=== PATIENT | female | born 1975 | race Caucasian/White ===

== ENCOUNTER 2017-07-18 00:59 | Emergency (ER) | payer BC ==
[~2017-07-18] VITALS: Ht 165.1 cm; Wt 108.9 kg
[~2017-07-18 00:59] MED LIST: ACET325; ACET325 PO; ALBU90OI INH; ALPR.5 PO; ALPR1 PO; ANTOXYBENA OT; AZIT250 PO; BENADRYL25 MG PO; BUPR150ER PO; BUSP10 PO; CEPH500 PO; CHANTIX; CIPRSO RIGHTEYE; CITA20 PO; CLON1 PO; CODACE30; CODGUAEL PO; CRUTCH4 USE; CYCL10 PO; Ciprodex Otic7.5 ML BOTHEARS; Cymbalta20 MG; DIPH50 PO; DOXY100 PO; DULO60 PO; ESCI10 PO; ESZO1 PO; Esgic Tablet1 EACH PO; FLUC150A PO; GABA400 PO; HIBICLENS120 ML EXT; HYDACE5 PO; HYDCHLSU PO; HYDGUAL120 PO; HYDHCL25 PO; IBUHYD PO; IBUP600; IBUP600 PO; IBUP800; IBUP800 PO; Keflex500 MG PO; LEVFLO500 PO; Lyrica150 MG; MECL25 PO; MELA3; MELA3 PO; METF500; MIRT15 PO; MULVITMINE; Melatonin5 M1 PO; NAPR550 PO; NEOPOLHCSU RIGHTEAR; NEOPOLHYDS OT; NITQUIL; NYST100TC TOP; OXYACE5T PO; PREG300 PO; PROP10 PO; PSEU30; RXHYDACE PO; RXHYDGUAS PO; RXNAPNA550 PO; RXNEOPOLHC AS; SERT100 PO; SERT50 PO; SULF10OPSA OD; SULTRIDS PO; SULTRIEL PO; TEMA30; TOPI50 PO; TYLENOL PM; Triamcinolone A15 G3 TOP; UNISOM; Vistaril50 MG PO; ZOLOFT; ZOLP10 PO; ZOLP5 PO; Zofran Odt4 MG SL; [UNRECOGNIZED DRUG - REMARK]
[2017-07-18] MEDS ORDERED: VENL25 (01:18)
[2017-07-18] MEDS ORDERED: LOSA50 PO (01:18)
[2017-07-18] MEDS ORDERED: OLAN10 (01:19)
[2018-01-15] MEDS ORDERED: CYCL10 PO (12:19)
[2018-01-15] MEDS ORDERED: Esgic Tablet1 EACH PO (13:07)
[2018-02-11] MEDS ORDERED: PROP10 PO (02:39)
[2018-02-11] MEDS ORDERED: DICL25ER PO (10:39)
[2018-02-11] MEDS ORDERED: LOSA50 PO (10:40)
[2018-02-11] MEDS ORDERED: Acetaminophen1 EAC2 PO (10:42)
[2018-02-11] MEDS ORDERED: Zantac150 MG PO (12:43)
[2018-05-13] MEDS ORDERED: GABAPENTIN PO (06:21)
[2018-05-22] MEDS ORDERED: QUET200 PO (06:34)
[2018-05-22] MEDS ORDERED: CLON1 PO (06:34)
[2018-05-22] MEDS ORDERED: ROPI2 PO (06:34)
== END 2017-07-18 01:53 | disposition home or self-care (01) ==
LOC: ER 00:59
DX: R51 Headache (principal); Z88.8 Allergy status to other drugs, medicaments and biological substances; Z79.899 Other long term (current) drug therapy; F41.9 Anxiety disorder, unspecified; G43.909 Migraine, unspecified, not intractable, without status migrainosus; F32.9 Major depressive disorder, single episode, unspecified; I10 Essential (primary) hypertension; F17.200 Nicotine dependence, unspecified, uncomplicated
CPT/HCPCS: 96372; 99283; J1100; J1885; Q0163

== ENCOUNTER 2017-07-24 01:04 | Emergency (ER) | payer BC ==
[~2017-07-24] VITALS: Ht 165.1 cm; Wt 90.7 kg
[~2017-07-24 01:04] MED LIST changes: +LOSA50 PO; +OLAN10; +VENL25
[2017-07-24] MEDS ORDERED: AMLO10 PO (02:19)
[2017-07-24] MEDS ORDERED: RANI150 PO (02:20)
[2017-07-24] MEDS ORDERED: VITAMIN D50000 UNIT PO (02:21)
[2017-07-24 02:32] LABS: BASOPHILS ABSOLUTE AUTO 0.03 K/mm3 (0.00-0.23); BASOPHILS PERCENT AUTO 0 % (0-2); EOSINOPHILS PERCENT AUTO 1 % (0-6); Hematocrit 37.7 % (33.0-51.0); Hemoglobin 13.2 g/dL (11.5-16.0); IMMATURE GRAN ABSOLUTE AUTO 0.11 K/mm3 (0.00-0.10); IMMATURE GRAN PERCENT AUTO 1 % (0-1); LYMPHOCYTES ABSOLUTE AUTO 3.52 K/mm3 (0.84-5.20); LYMPHOCYTES PERCENT AUTO 25 % (21-46); MONOCYTES ABSOLUTE AUTO 1.11 K/mm3 (0.16-1.47); MONOCYTES PERCENT AUTO 8 % (4-13); Mean Corpuscular HGB 31.1 pg (26.0-34.0); Mean Corpuscular Volume 89 fL (80-100); Mean Platelet Volume 10.8 fL (9.1-12.4); NEUTROPHILS ABSOLUTE AUTO 9.33 K/mm3 (1.96-9.15); NEUTROPHILS PERCENT AUTO 65 % (41-73); Platelet Count 268 K/mm3 (150-400); RDW Coefficient Variation 12.6 % (11.7-14.2); RDW Standard Deviation 40.6 fL (35.1-46.3); Red Blood Cell Count 4.24 M/mm3 (3.80-5.20)
[2017-07-24 02:53] LABS: Alanine Aminotransfer (ALT/SGP 24 U/L (12-78); Albumin, Blood 3.6 g/dL (3.4-5.0); Albumin/Globulin Ratio 0.9 (0.8-1.8); Alk Phos 71 U/L (50-136); Anion Gap 12 mmol/L (6-16); Aspartate Aminotrans (AST/SGOT 13 U/L (12-37); Bilirubin, Total 0.2 mg/dL (0.1-1.0); Blood Urea Nitrogen 11 mg/dL (8-24); Bun/Creatinine Ratio 21.1 (12.0-20.0); CO2, Blood 21 mmol/L (21-32); Calcium, Blood 8.5 mg/dL (8.5-10.1); Chloride, Blood 104 mmol/L (98-108); Creatinine, Blood 0.52 mg/dL (0.40-1.00); Globulin, Blood 3.8 g/dL (2.2-4.0); Glomerular Filtration Rate >60 (60-); Glucose, Blood 105 mg/dL (70-99); Potassium, Blood 3.9 mmol/L (3.5-5.5); Sodium, Blood 137 mmol/L (136-145); Total Protein, Blood 7.4 g/dL (6.4-8.2); Troponin I <0.015 ng/mL (0.000-0.040)
[2018-01-15] MEDS ORDERED: CYCL10 PO (12:19)
[2018-01-15] MEDS ORDERED: Esgic Tablet1 EACH PO (13:07)
[2018-02-11] MEDS ORDERED: PROP10 PO (02:39)
[2018-02-11] MEDS ORDERED: DICL25ER PO (10:39)
[2018-02-11] MEDS ORDERED: LOSA50 PO (10:40)
[2018-02-11] MEDS ORDERED: Acetaminophen1 EAC2 PO (10:42)
[2018-02-11] MEDS ORDERED: Zantac150 MG PO (12:43)
[2018-05-13] MEDS ORDERED: GABAPENTIN PO (06:21)
[2018-05-22] MEDS ORDERED: ROPI2 PO (06:34)
[2018-05-22] MEDS ORDERED: QUET200 PO (06:34)
[2018-05-22] MEDS ORDERED: CLON1 PO (06:34)
== END 2017-07-24 03:00 | disposition home or self-care (01) ==
LOC: ER 01:04
PROVIDERS: Emergency Medicine
DX: R07.9 Chest pain, unspecified (principal); I10 Essential (primary) hypertension; F41.9 Anxiety disorder, unspecified; F32.9 Major depressive disorder, single episode, unspecified; F17.200 Nicotine dependence, unspecified, uncomplicated; Z88.8 Allergy status to other drugs, medicaments and biological substances; Z79.899 Other long term (current) drug therapy
CPT/HCPCS: 36415; 71046; 80053; 84484; 85025; 93005; 93010; 99283

== ENCOUNTER 2017-09-18 18:29 | Emergency (ER) | payer BC ==
[~2017-09-18] VITALS: Ht 165.1 cm; Wt 99.8 kg
[~2017-09-18 18:29] MED LIST changes: +AMLO10 PO; +RANI150 PO; +VITAMIN D50000 UNIT PO
[2017-09-18 19:19] LABS: Source, Urine Clean Catch
[2017-09-18 19:24] LABS: Appearance, Urine Hazy (Clear); Bilirubin, Urine Neg (Neg); Blood, Urine Neg (Neg); Color, Urine Yellow (P-Yellow); Glucose Qualitative, Urine Neg (Neg); Ketones, Urine Neg (Neg); Leukocyte Esterase, Urine 1+ (Neg); Nitrite, Urine Neg (Neg); Protein, Urine Neg (Neg); Urobilinogen, Urine NORM (Normal)
[2017-09-18 19:47] LABS: Bacteria Few /hpf; Red Blood Cells, Urine Not Seen /hpf (0-2); Squamous Epithelial Cells Many /hpf (Few)
[2017-09-18] MEDS ORDERED: QUETIAPINE FUM400 MG PO (19:47)
[2017-09-18] MEDS ORDERED: Diclofenac Sodi50 MG PO (19:48)
[2017-09-18] MEDS ORDERED: Venlafaxine HC150 MG PO (19:48)
[2017-09-18] MEDS ORDERED: Inderal40 MG PO (19:49)
[2017-09-18] MEDS ORDERED: HYDHCL25 PO (19:50)
[2017-09-18] MEDS ORDERED: CEPH500 PO (21:32)
[2018-01-15] MEDS ORDERED: CYCL10 PO (12:19)
[2018-01-15] MEDS ORDERED: Esgic Tablet1 EACH PO (13:07)
[2018-02-11] MEDS ORDERED: PROP10 PO (02:39)
[2018-02-11] MEDS ORDERED: DICL25ER PO (10:39)
[2018-02-11] MEDS ORDERED: LOSA50 PO (10:40)
[2018-02-11] MEDS ORDERED: Acetaminophen1 EAC2 PO (10:42)
[2018-02-11] MEDS ORDERED: Zantac150 MG PO (12:43)
[2018-05-13] MEDS ORDERED: GABAPENTIN PO (06:21)
[2018-05-22] MEDS ORDERED: QUET200 PO (06:34)
[2018-05-22] MEDS ORDERED: ROPI2 PO (06:34)
[2018-05-22] MEDS ORDERED: CLON1 PO (06:34)
== END 2017-09-18 22:05 | disposition home or self-care (01) ==
LOC: ER 18:29
PROVIDERS: Emergency Medicine
DX: G43.909 Migraine, unspecified, not intractable, without status migrainosus (principal); N39.0 Urinary tract infection, site not specified; I10 Essential (primary) hypertension; F32.9 Major depressive disorder, single episode, unspecified; F41.9 Anxiety disorder, unspecified; F17.210 Nicotine dependence, cigarettes, uncomplicated; Z88.8 Allergy status to other drugs, medicaments and biological substances; Z79.899 Other long term (current) drug therapy
CPT/HCPCS: 81001; 81025; 87077; 87086; 87186; 96374; 96375; 99284; J0696; J1200; J1885; J2765

== ENCOUNTER 2018-02-24 19:02 | Inpatient (IN) | payer BC ==
[~2018-02-24] VITALS: Ht 162.6 cm; Wt 101.0 kg
[~2018-02-24 19:02] MED LIST changes: +Acetaminophen1 EAC2 PO; +DICL25ER PO; +Diclofenac Sodi50 MG PO; +Inderal40 MG PO; +QUETIAPINE FUM400 MG PO; +Venlafaxine HC150 MG PO; +Zantac150 MG PO
[2018-02-24 19:48] LABS: BASOPHILS ABSOLUTE AUTO 0.06 K/mm3 (0.00-0.23); BASOPHILS PERCENT AUTO 1 % (0-2); EOSINOPHILS PERCENT AUTO 2 % (0-6); Hematocrit 35.6 % (33.0-51.0); Hemoglobin 11.7 g/dL (11.5-16.0); IMMATURE GRAN PERCENT AUTO 5 % (0-1); LYMPHOCYTES ABSOLUTE AUTO 2.35 K/mm3 (0.84-5.20); LYMPHOCYTES PERCENT AUTO 18 % (21-46); MONOCYTES ABSOLUTE AUTO 0.59 K/mm3 (0.16-1.47); MONOCYTES PERCENT AUTO 4 % (4-13); Mean Corpuscular HGB Conc 32.9 g/dL (31.5-36.5); Mean Corpuscular Volume 88 fL (80-100); Mean Platelet Volume 10.1 fL (9.1-12.4); NEUTROPHILS ABSOLUTE AUTO 9.28 K/mm3 (1.96-9.15); NEUTROPHILS PERCENT AUTO 70 % (41-73); Platelet Count 455 K/mm3 (150-400); RDW Coefficient Variation 12.6 % (11.7-14.2); Red Blood Cell Count 4.04 M/mm3 (3.80-5.20); White Blood Cell Count 13.28 K/mm3 (4.00-11.30)
[2018-02-24 20:05] LABS: BAND PERCENT MAN 5 % (0-8); BASOPHILS PERCENT MAN 0 % (0-2); EOSINOPHILS ABSOLUTE MAN 0.39 K/mm3 (0.00-0.68); EOSINOPHILS PERCENT MAN 3 % (0-6); LYMPHOCYTES ABSOLUTE MAN 2.65 K/mm3 (0.84-5.20); LYMPHOCYTES PERCENT MAN 20 % (21-46); METAMYELOCYTE ABSOLUTE MAN 0.13 K/mm3 (0.00-0.00); METAMYELOCYTE PERCENT MAN 1 % (0-0); MONOCYTES ABSOLUTE MAN 0.39 K/mm3 (0.16-1.47); MONOCYTES PERCENT MAN 3 % (4-13); NEUTROPHILS ABSOLUTE MAN 9.69 K/mm3 (1.96-9.15); SEG NEUTROPHILS PERCENT MAN 68 % (41-73); TOTAL CELLS COUNTED 100
[2018-02-24 20:37] LABS: Alanine Aminotransfer (ALT/SGP 30 U/L (12-78); Albumin, Blood 3.4 g/dL (3.4-5.0); Albumin/Globulin Ratio 0.8 (0.8-1.8); Alk Phos 153 U/L (50-136); Anion Gap 11 mmol/L (6-16); Aspartate Aminotrans (AST/SGOT 17 U/L (12-37); Bilirubin, Total <0.1 mg/dL (0.1-1.0); Blood Urea Nitrogen 9 mg/dL (8-24); CO2, Blood 25 mmol/L (21-32); Calcium, Blood 9.2 mg/dL (8.5-10.1); Chloride, Blood 101 mmol/L (98-108); Creatinine, Blood 0.75 mg/dL (0.40-1.00); Globulin, Blood 4.4 g/dL (2.2-4.0); Glomerular Filtration Rate >60 (60-); Glucose, Blood 104 mg/dL (70-99); Potassium, Blood 3.8 mmol/L (3.5-5.5); Sodium, Blood 137 mmol/L (136-145); Total Protein, Blood 7.8 g/dL (6.4-8.2)
[2018-02-24 21:04] LABS: Source, Urine Clean Catch
[2018-02-24 21:07] LABS: Bilirubin, Urine Neg (Neg); Blood, Urine 2+ (Neg); Glucose Qualitative, Urine Neg (Neg); Ketones, Urine Neg (Neg); Leukocyte Esterase, Urine 2+ (Neg); Nitrite, Urine Neg (Neg); Protein, Urine 1+ (Neg); Urobilinogen, Urine NORM (Normal)
[2018-02-24 21:13] LABS: Appearance, Urine Hazy (Clear); Color, Urine Yellow (P-Yellow)
[2018-02-24 21:15] LABS: Bacteria Mod /hpf; Red Blood Cells, Urine 0-2 /hpf (0-2); Squamous Epithelial Cells Many /hpf (Few); White Blood Cells, Urine 50-100 /hpf (0-5)
[2018-02-25] MEDS ORDERED: OXYC5 (00:03)
[2018-02-25 06:28] LABS: BASOPHILS ABSOLUTE AUTO 0.04 K/mm3 (0.00-0.23); BASOPHILS PERCENT AUTO 0 % (0-2); EOSINOPHILS ABSOLUTE AUTO 0.26 K/mm3 (0.00-0.68); EOSINOPHILS PERCENT AUTO 2 % (0-6); Hematocrit 31.3 % (33.0-51.0); Hemoglobin 10.4 g/dL (11.5-16.0); IMMATURE GRAN ABSOLUTE AUTO 0.56 K/mm3 (0.00-0.10); IMMATURE GRAN PERCENT AUTO 5 % (0-1); LYMPHOCYTES ABSOLUTE AUTO 2.03 K/mm3 (0.84-5.20); LYMPHOCYTES PERCENT AUTO 18 % (21-46); MONOCYTES ABSOLUTE AUTO 0.52 K/mm3 (0.16-1.47); MONOCYTES PERCENT AUTO 5 % (4-13); Mean Corpuscular HGB 29.6 pg (26.0-34.0); Mean Corpuscular HGB Conc 33.2 g/dL (31.5-36.5); Mean Corpuscular Volume 89 fL (80-100); Mean Platelet Volume 10.1 fL (9.1-12.4); NEUTROPHILS ABSOLUTE AUTO 7.92 K/mm3 (1.96-9.15); NEUTROPHILS PERCENT AUTO 70 % (41-73); Platelet Count 378 K/mm3 (150-400); RDW Coefficient Variation 12.9 % (11.7-14.2); RDW Standard Deviation 41.9 fL (35.1-46.3); Red Blood Cell Count 3.51 M/mm3 (3.80-5.20); White Blood Cell Count 11.33 K/mm3 (4.00-11.30)
[2018-02-25 06:49] LABS: Alanine Aminotransfer (ALT/SGP 26 U/L (12-78); Albumin, Blood 2.9 g/dL (3.4-5.0); Albumin/Globulin Ratio 0.7 (0.8-1.8); Alk Phos 127 U/L (50-136); Anion Gap 8 mmol/L (6-16); Aspartate Aminotrans (AST/SGOT 16 U/L (12-37); Bilirubin, Total 0.1 mg/dL (0.1-1.0); Blood Urea Nitrogen 9 mg/dL (8-24); Bun/Creatinine Ratio 10.9 (12.0-20.0); CO2, Blood 24 mmol/L (21-32); Calcium, Blood 8.2 mg/dL (8.5-10.1); Chloride, Blood 104 mmol/L (98-108); Creatinine, Blood 0.83 mg/dL (0.40-1.00); Globulin, Blood 3.9 g/dL (2.2-4.0); Glomerular Filtration Rate >60 (60-); Glucose, Blood 100 mg/dL (70-99); Potassium, Blood 3.9 mmol/L (3.5-5.5); Sodium, Blood 136 mmol/L (136-145); Total Protein, Blood 6.8 g/dL (6.4-8.2)
[2018-02-25 15:49] LABS: Source, Urine Clean Catch
[2018-02-25 15:52] LABS: Bilirubin, Urine Neg (Neg); Blood, Urine Neg (Neg); Glucose Qualitative, Urine Neg (Neg); Ketones, Urine Neg (Neg); Leukocyte Esterase, Urine Neg (Neg); Nitrite, Urine Neg (Neg); Protein, Urine Neg (Neg); Urobilinogen, Urine NORM (Normal)
[2018-02-25 15:56] LABS: Appearance, Urine Clear (Clear); Color, Urine Yellow (P-Yellow)
[2018-02-26] MEDS ORDERED: ALPR.5 PO (10:29)
[2018-02-26] MEDS ORDERED: HYDR1TAB94 PO (10:30)
== END 2018-02-26 11:18 | disposition home or self-care (01) | DRG 439 ==
LOC: ER 19:02 → MEDS 22:09 → ENPENDDIS 02-26 10:09 → MEDS 02-26 11:18
PROVIDERS: Hospitalist; Internal Medicine
DX: K85.90 Acute pancreatitis without necrosis or infection, unspecified (principal); R65.10 Systemic inflammatory response syndrome (SIRS) of non-infectious origin without acute organ dysfunction; G43.909 Migraine, unspecified, not intractable, without status migrainosus; F41.8 Other specified anxiety disorders; I10 Essential (primary) hypertension; F17.210 Nicotine dependence, cigarettes, uncomplicated; F43.20 Adjustment disorder, unspecified; E66.9 Obesity, unspecified; Z68.38 Body mass index [BMI] 38.0-38.9, adult; F41.9 Anxiety disorder, unspecified
CPT/HCPCS: 36415; 71045; 74177; 80053; 81001; 81003; 82947; 83605; 83690; 85025; 87040; 87086; 96365; 96375; 96376; 99285-25; J0696; J0744; J1200; J2060; J2405; J3010; J7030; Q9967

== ENCOUNTER 2018-03-02 19:01 | Emergency (ER) | payer BC ==
[~2018-03-02] VITALS: Ht 162.6 cm; Wt 100.2 kg
[~2018-03-02 19:01] MED LIST changes: +HYDR1TAB94 PO; +OXYC5
[2018-03-02 22:11] LABS: BASOPHILS ABSOLUTE AUTO 0.05 K/mm3 (0.00-0.23); BASOPHILS PERCENT AUTO 1 % (0-2); EOSINOPHILS ABSOLUTE AUTO 0.19 K/mm3 (0.00-0.68); EOSINOPHILS PERCENT AUTO 2 % (0-6); Hematocrit 31.6 % (33.0-51.0); Hemoglobin 10.3 g/dL (11.5-16.0); IMMATURE GRAN ABSOLUTE AUTO 0.05 K/mm3 (0.00-0.10); IMMATURE GRAN PERCENT AUTO 1 % (0-1); LYMPHOCYTES ABSOLUTE AUTO 2.11 K/mm3 (0.84-5.20); LYMPHOCYTES PERCENT AUTO 26 % (21-46); MONOCYTES PERCENT AUTO 6 % (4-13); Mean Corpuscular HGB 29.5 pg (26.0-34.0); Mean Corpuscular HGB Conc 32.6 g/dL (31.5-36.5); Mean Corpuscular Volume 91 fL (80-100); Mean Platelet Volume 10.5 fL (9.1-12.4); NEUTROPHILS ABSOLUTE AUTO 5.14 K/mm3 (1.96-9.15); NEUTROPHILS PERCENT AUTO 64 % (41-73); Platelet Count 385 K/mm3 (150-400); RDW Coefficient Variation 12.8 % (11.7-14.2); RDW Standard Deviation 42.1 fL (35.1-46.3); Red Blood Cell Count 3.49 M/mm3 (3.80-5.20); White Blood Cell Count 8.04 K/mm3 (4.00-11.30)
[2018-03-02 22:31] LABS: Alanine Aminotransfer (ALT/SGP 30 U/L (12-78); Albumin, Blood 3.1 g/dL (3.4-5.0); Albumin/Globulin Ratio 0.9 (0.8-1.8); Alk Phos 109 U/L (50-136); Anion Gap 9 mmol/L (6-16); Aspartate Aminotrans (AST/SGOT 16 U/L (12-37); Bilirubin, Total 0.1 mg/dL (0.1-1.0); Blood Urea Nitrogen 11 mg/dL (8-24); CO2, Blood 23 mmol/L (21-32); Calcium, Blood 8.4 mg/dL (8.5-10.1); Chloride, Blood 106 mmol/L (98-108); Creatinine, Blood 0.85 mg/dL (0.40-1.00); Globulin, Blood 3.6 g/dL (2.2-4.0); Glomerular Filtration Rate >60 (60-); Glucose, Blood 92 mg/dL (70-99); Potassium, Blood 4.1 mmol/L (3.5-5.5); Sodium, Blood 138 mmol/L (136-145); Total Protein, Blood 6.7 g/dL (6.4-8.2)
[2018-03-02 23:13] LABS: Source, Urine Clean Catch
[2018-03-02 23:15] LABS: Bilirubin, Urine Neg (Neg); Blood, Urine 2+ (Neg); Glucose Qualitative, Urine Neg (Neg); Ketones, Urine Neg (Neg); Leukocyte Esterase, Urine Neg (Neg); Nitrite, Urine Neg (Neg); Protein, Urine Neg (Neg); Specific Gravity, Urine 1.025 (1.003-1.022); Urobilinogen, Urine NORM (Normal)
[2018-03-02] MEDS ORDERED: Roxicodone5 MG PO (23:15)
[2018-03-02 23:21] LABS: Appearance, Urine Clear (Clear); Color, Urine Yellow (P-Yellow)
[2018-03-02 23:22] LABS: Bacteria Many /hpf; Mucus Mod (0-Heavy); Red Blood Cells, Urine 0-2 /hpf (0-2); Squamous Epithelial Cells Many /hpf (Few); White Blood Cells, Urine 0-2 /hpf (0-5)
== END 2018-03-03 00:21 | disposition home or self-care (01) ==
LOC: ER 19:01
PROVIDERS: Emergency Medicine
DX: K85.90 Acute pancreatitis without necrosis or infection, unspecified (principal); F41.9 Anxiety disorder, unspecified; F32.9 Major depressive disorder, single episode, unspecified; I10 Essential (primary) hypertension; F17.210 Nicotine dependence, cigarettes, uncomplicated; Z88.8 Allergy status to other drugs, medicaments and biological substances; Z79.899 Other long term (current) drug therapy
CPT/HCPCS: 36415; 74176; 80053; 81001; 81025; 83690; 85025; 87086; 96361; 96374; 96375; 99284-25; J1885; J3010; J7030

== ENCOUNTER 2018-03-06 12:30 | Emergency (ER) | payer BC ==
[~2018-03-06] VITALS: Ht 165.1 cm; Wt 102.1 kg
[~2018-03-06 12:30] MED LIST changes: +Roxicodone5 MG PO
[2018-03-06 13:59] LABS: BASOPHILS ABSOLUTE AUTO 0.04 K/mm3 (0.00-0.23); BASOPHILS PERCENT AUTO 1 % (0-2); EOSINOPHILS ABSOLUTE AUTO 0.15 K/mm3 (0.00-0.68); EOSINOPHILS PERCENT AUTO 2 % (0-6); Hematocrit 34.4 % (33.0-51.0); Hemoglobin 11.5 g/dL (11.5-16.0); IMMATURE GRAN ABSOLUTE AUTO 0.05 K/mm3 (0.00-0.10); IMMATURE GRAN PERCENT AUTO 1 % (0-1); LYMPHOCYTES ABSOLUTE AUTO 1.68 K/mm3 (0.84-5.20); LYMPHOCYTES PERCENT AUTO 25 % (21-46); MONOCYTES ABSOLUTE AUTO 0.41 K/mm3 (0.16-1.47); MONOCYTES PERCENT AUTO 6 % (4-13); Mean Corpuscular HGB 29.6 pg (26.0-34.0); Mean Corpuscular HGB Conc 33.4 g/dL (31.5-36.5); Mean Platelet Volume 10.6 fL (9.1-12.4); NEUTROPHILS ABSOLUTE AUTO 4.41 K/mm3 (1.96-9.15); NEUTROPHILS PERCENT AUTO 66 % (41-73); Platelet Count 373 K/mm3 (150-400); RDW Coefficient Variation 13.2 % (11.7-14.2); RDW Standard Deviation 42.3 fL (35.1-46.3); Red Blood Cell Count 3.89 M/mm3 (3.80-5.20); White Blood Cell Count 6.74 K/mm3 (4.00-11.30)
[2018-03-06 14:00] LABS: Mean Corpuscular Volume 88 fL (80-100)
[2018-03-06 14:16] LABS: Alanine Aminotransfer (ALT/SGP 48 U/L (12-78); Albumin, Blood 3.7 g/dL (3.4-5.0); Albumin/Globulin Ratio 0.9 (0.8-1.8); Alk Phos 113 U/L (50-136); Anion Gap 9 mmol/L (6-16); Aspartate Aminotrans (AST/SGOT 33 U/L (12-37); Bilirubin, Total 0.2 mg/dL (0.1-1.0); Blood Urea Nitrogen 14 mg/dL (8-24); CO2, Blood 24 mmol/L (21-32); Chloride, Blood 104 mmol/L (98-108); Creatinine, Blood 0.93 mg/dL (0.40-1.00); Globulin, Blood 4.1 g/dL (2.2-4.0); Glomerular Filtration Rate >60 (60-); Glucose, Blood 124 mg/dL (70-99); Sodium, Blood 137 mmol/L (136-145); Total Protein, Blood 7.8 g/dL (6.4-8.2)
== END 2018-03-06 16:17 | disposition left against medical advice (07) ==
LOC: ER 12:30
PROVIDERS: Emergency Medicine
DX: Z53.21 Procedure and treatment not carried out due to patient leaving prior to being seen by health care provider (principal)
CPT/HCPCS: 36415; 80053; 83690; 85025; 93005; 93010

== ENCOUNTER 2018-05-13 05:59 | Emergency (ER) | payer BC ==
[~2018-05-13] VITALS: Ht 162.6 cm; Wt 99.8 kg
[2018-05-13] MEDS ORDERED: GABAPENTIN (06:21)
[2018-05-13] MEDS ORDERED: ROPINIROLE (06:22)
[2018-05-13] MEDS ORDERED: BENZ100A PO (08:09)
== END 2018-05-13 09:10 | disposition home or self-care (01) ==
LOC: ER 05:59
DX: G43.909 Migraine, unspecified, not intractable, without status migrainosus (principal); F41.9 Anxiety disorder, unspecified; F32.9 Major depressive disorder, single episode, unspecified; I10 Essential (primary) hypertension; F17.210 Nicotine dependence, cigarettes, uncomplicated; Z79.899 Other long term (current) drug therapy
CPT/HCPCS: 96372; 99282-25; J1200; J1885; J2765

== ENCOUNTER → 2018-09-27 | Outpatient (CLI) | payer BC ==
[~2018-09-27] MED LIST changes: +BENZ100A PO; +GABAPENTIN PO; +QUET200 PO; +ROPI2 PO; +ROPINIROLE
[2018-09-29 17:07] LABS: HPV 16 Negative (Negative); HPV 18 Negative (Negative); HPV OTHER HR TYPES Negative (Negative)
== END | disposition home or self-care (01) ==
LOC: LAB 16:01 → LAB SHORT 16:01
PROVIDERS: Obstetrics & Gynecology
DX: Z12.4 Encounter for screening for malignant neoplasm of cervix (principal); R93.89 Abnormal findings on diagnostic imaging of other specified body structures
CPT/HCPCS: 87624; 88305; G0123

== ENCOUNTER 2019-08-31 01:39 | Emergency (ER) | payer OTHER ==
[~2019-08-31] VITALS: Ht 162.6 cm; Wt 108.9 kg
[~2019-08-31 01:39] MED LIST changes: +ALPR1; +DOXE10; +Toprol Xl200 MG; +ZOLP10; +Zantac150 MG
[2019-08-31] MEDS ORDERED: ROBITUSSIN COL237 ML PO (03:29)
[2019-08-31] MEDS ORDERED: ALBU90OI INH (03:29)
== END 2019-08-31 03:47 | disposition home or self-care (01) ==
LOC: ER 01:39
DX: R56.9 Unspecified convulsions (principal); J40 Bronchitis, not specified as acute or chronic; F32.9 Major depressive disorder, single episode, unspecified; F43.10 Post-traumatic stress disorder, unspecified; F17.210 Nicotine dependence, cigarettes, uncomplicated; Z88.8 Allergy status to other drugs, medicaments and biological substances; Z79.899 Other long term (current) drug therapy
CPT/HCPCS: 99284

== ENCOUNTER 2019-09-10 22:44 | Emergency (ER) | payer OTHER ==
[~2019-09-10] VITALS: Ht 167.6 cm; Wt 111.1 kg
[~2019-09-10 22:44] MED LIST changes: +ROBITUSSIN COL237 ML PO
[2019-09-10 23:19] LABS: BASOPHILS ABSOLUTE AUTO 0.04 K/mm3 (0.00-0.23); BASOPHILS PERCENT AUTO 0 % (0-2); EOSINOPHILS ABSOLUTE AUTO 0.19 K/mm3 (0.00-0.68); EOSINOPHILS PERCENT AUTO 2 % (0-6); Hemoglobin 10.5 g/dL (11.5-16.0); IMMATURE GRAN ABSOLUTE AUTO 0.09 K/mm3 (0.00-0.10); IMMATURE GRAN PERCENT AUTO 1 % (0-1); LYMPHOCYTES ABSOLUTE AUTO 2.36 K/mm3 (0.84-5.20); LYMPHOCYTES PERCENT AUTO 26 % (21-46); MONOCYTES ABSOLUTE AUTO 0.54 K/mm3 (0.16-1.47); MONOCYTES PERCENT AUTO 6 % (4-13); Mean Corpuscular HGB 28.6 pg (26.0-34.0); Mean Corpuscular HGB Conc 31.8 g/dL (31.5-36.5); Mean Corpuscular Volume 90 fL (80-100); NEUTROPHILS ABSOLUTE AUTO 5.71 K/mm3 (1.96-9.15); NEUTROPHILS PERCENT AUTO 64 % (41-73); NRBC ABSOLUTE 0.02 K/mm3 (0.00-0.02); NRBC Auto 0.2 /100 WBC (0.0-0.2); RDW Coefficient Variation 13.8 % (11.7-14.2); RDW Standard Deviation 45.1 fL (35.1-46.3); Red Blood Cell Count 3.67 M/mm3 (3.80-5.20); White Blood Cell Count 8.93 K/mm3 (4.00-11.30)
[2019-09-10 23:22] LABS: Platelet Count 281 K/mm3 (150-400)
[2019-09-10 23:34] LABS: Ethanol (Alcohol), Blood, Med <3 mg/dL; Salicylate 3.6 mg/dL (2.8-20.0)
[2019-09-10 23:35] LABS: Acetaminophen, Random <2.0 ug/mL (10.0-30.0); Alanine Aminotransfer (ALT/SGP 65 U/L (12-78); Albumin, Blood 3.6 g/dL (3.4-5.0); Albumin/Globulin Ratio 0.9 (0.8-1.8); Alk Phos 80 U/L (50-136); Anion Gap 11 mmol/L (6-16); Aspartate Aminotrans (AST/SGOT 47 U/L (12-37); Bilirubin, Total <0.1 mg/dL (0.1-1.0); Blood Urea Nitrogen 10 mg/dL (8-24); Bun/Creatinine Ratio 16.7 (12.0-20.0); CO2, Blood 24 mmol/L (21-32); Calcium, Blood 8.8 mg/dL (8.5-10.1); Chloride, Blood 101 mmol/L (98-108); Globulin, Blood 4.2 g/dL (2.2-4.0); Glomerular Filtration Rate >60 (60-); Glucose, Blood 155 mg/dL (70-99); Potassium, Blood 3.9 mmol/L (3.5-5.5); Sodium, Blood 136 mmol/L (136-145); Total Protein, Blood 7.8 g/dL (6.4-8.2)
[2019-09-11 01:00] LABS: Source, Urine Clean Catch
[2019-09-11 01:03] LABS: Bilirubin, Urine Neg (Neg); Blood, Urine 3+ (Neg); Glucose Qualitative, Urine Neg (Neg); Ketones, Urine Neg (Neg); Leukocyte Esterase, Urine 1+ (Neg); Nitrite, Urine Pos (Neg); Protein, Urine Neg (Neg); Specific Gravity, Urine 1.015 (1.003-1.022); Urobilinogen, Urine NORM (Normal)
[2019-09-11 01:04] LABS: Appearance, Urine Clear (Clear); Color, Urine Yellow (P-Yellow)
[2019-09-11 01:08] LABS: Bacteria Many /hpf; Red Blood Cells, Urine 0-2 /hpf (0-2); Squamous Epithelial Cells Few /hpf (Few)
[2019-09-11 01:13] LABS: U Amphetamine Screen Not Detected; U Barbituate Screen Not Detected; U Benzodiazapine Screen DETECTED; U Buprenorphine Screen Not Detected; U Cannabinoids Screen Not Detected; U Cocaine Screen Not Detected; U Methadone Screen Not Detected; U Methamphetamine Screen Not Detected; U Opiates Screen Not Detected; U Oxycodone Screen Not Detected; U Phencyclidine Screen Not Detected; U Propoxyphene Screen Not Detected
== END 2019-09-11 01:31 | disposition home or self-care (01) ==
LOC: ER 22:44
PROVIDERS: Emergency Medicine
DX: F45.8 Other somatoform disorders (principal); F32.9 Major depressive disorder, single episode, unspecified; F41.9 Anxiety disorder, unspecified; I10 Essential (primary) hypertension
CPT/HCPCS: 36415; 80053; 81001; 81025; 85025; 87077; 87086; 87186; G0480

== ENCOUNTER 2020-08-21 15:08 | Emergency (ER) | payer OTHER ==
[~2020-08-21] VITALS: Ht 162.6 cm; Wt 117.9 kg
[~2020-08-21 15:08] MED LIST changes: -ALPR1; -ZOLP10
[2021-01-19] MEDS ORDERED: LORA2 PO (06:53)
== END 2020-08-21 15:58 | disposition left against medical advice (07) ==
LOC: ER 15:08
DX: R00.0 Tachycardia, unspecified (principal); R56.9 Unspecified convulsions; F17.210 Nicotine dependence, cigarettes, uncomplicated; Z88.8 Allergy status to other drugs, medicaments and biological substances; Z79.899 Other long term (current) drug therapy
CPT/HCPCS: 99283

== ENCOUNTER 2021-01-15 11:18 | Inpatient (IN) | payer OTHER ==
[~2021-01-15] VITALS: Ht 160 cm; Wt 105.8 kg
[2021-01-15] MEDS ORDERED: MIRT30 PO (11:51)
[2021-01-15] MEDS ORDERED: ROPI.25 PO (11:52)
[2021-01-15] MEDS ORDERED: LAMO100 PO (11:53)
[2021-01-15 11:56] LABS: Source, Urine Clean Catch
[2021-01-15 12:01] LABS: Appearance, Urine Clear (Clear); Bilirubin, Urine Neg (Neg); Blood, Urine 1+ (Neg); Color, Urine Yellow (P-Yellow); Glucose Qualitative, Urine Neg (Neg); Ketones, Urine Neg (Neg); Leukocyte Esterase, Urine Neg (Neg); Nitrite, Urine Neg (Neg); Protein, Urine 3+ (Neg); Urobilinogen, Urine NORM (Normal)
[2021-01-15 12:02] LABS: BASOPHILS ABSOLUTE AUTO 0.05 K/mm3 (0.00-0.23); BASOPHILS PERCENT AUTO 1 % (0-2); EOSINOPHILS PERCENT AUTO 1 % (0-6); Hemoglobin 12.3 g/dL (11.5-16.0); IMMATURE GRAN ABSOLUTE AUTO 0.07 K/mm3 (0.00-0.10); IMMATURE GRAN PERCENT AUTO 1 % (0-1); LYMPHOCYTES ABSOLUTE AUTO 2.45 K/mm3 (0.84-5.20); LYMPHOCYTES PERCENT AUTO 27 % (21-46); MONOCYTES ABSOLUTE AUTO 0.56 K/mm3 (0.16-1.47); MONOCYTES PERCENT AUTO 6 % (4-13); Mean Corpuscular HGB 28.4 pg (26.0-34.0); Mean Corpuscular HGB Conc 33.2 g/dL (31.5-36.5); Mean Corpuscular Volume 86 fL (80-100); Mean Platelet Volume 10.6 fL (9.1-12.4); NEUTROPHILS ABSOLUTE AUTO 5.82 K/mm3 (1.96-9.15); NEUTROPHILS PERCENT AUTO 64 % (41-73); Platelet Count 307 K/mm3 (150-400); RDW Coefficient Variation 13.4 % (11.7-14.2); Red Blood Cell Count 4.33 M/mm3 (3.80-5.20); White Blood Cell Count 9.05 K/mm3 (4.00-11.30)
[2021-01-15 12:11] LABS: Alanine Aminotransfer (ALT/SGP 32 U/L (12-78); Albumin, Blood 3.8 g/dL (3.4-5.0); Albumin/Globulin Ratio 0.9 (0.8-1.8); Alk Phos 110 U/L (50-136); Anion Gap 10 mmol/L (6-16); Aspartate Aminotrans (AST/SGOT 26 U/L (12-37); Bilirubin, Total 0.2 mg/dL (0.1-1.0); Blood Urea Nitrogen 6 mg/dL (8-24); Bun/Creatinine Ratio 9.2 (12.0-20.0); CO2, Blood 22 mmol/L (21-32); Calcium, Blood 9.4 mg/dL (8.5-10.1); Chloride, Blood 104 mmol/L (98-108); Creatinine, Blood 0.66 mg/dL (0.40-1.00); Ethanol (Alcohol), Blood, Med <3 mg/dL; Globulin, Blood 4.3 g/dL (2.2-4.0); Glomerular Filtration Rate >60 (60-); Glucose, Blood 140 mg/dL (70-99); Potassium, Blood 2.9 mmol/L (3.5-5.5); Salicylate 4.9 mg/dL (2.8-20.0); Sodium, Blood 136 mmol/L (136-145); Total Protein, Blood 8.1 g/dL (6.4-8.2)
[2021-01-15 12:25] LABS: Acetaminophen, Random <2.0 ug/mL (10.0-30.0)
[2021-01-15 12:46] LABS: Red Blood Cells, Urine 0-2 /hpf (0-2); Squamous Epithelial Cells Few /hpf (Few); White Blood Cells, Urine 0-2 /hpf (0-5)
[2021-01-15 12:47] LABS: Bacteria Not Seen /hpf; Hyaline Casts Rare /lpf (0-2); Mucus Light (0-Heavy)
[2021-01-15] MEDS ORDERED: ALPRAZOLAM PO (12:55)
[2021-01-15] MEDS ORDERED: BASAGLAR K100 UNIT/8 SC (12:56)
[2021-01-15] MEDS ORDERED: LAMOTRIGINE100 M1 PO (12:56)
[2021-01-15] MEDS ORDERED: AMLODIPINE BESY10 MG PO (12:57)
[2021-01-15] MEDS ORDERED: GLUCOPHAGE1000 M5 PO (12:57)
[2021-01-15 13:15] LABS: U Amphetamine Screen Not Detected; U Barbituate Screen Not Detected; U Benzodiazapine Screen DETECTED; U Buprenorphine Screen Not Detected; U Cannabinoids Screen Not Detected; U Cocaine Screen Not Detected; U Methadone Screen Not Detected; U Methamphetamine Screen Not Detected; U Opiates Screen Not Detected; U Oxycodone Screen Not Detected; U Phencyclidine Screen Not Detected; U Propoxyphene Screen Not Detected
--- NOTE | 2021-01-15 16:37 | NUR ---
Admission/[place] of Care: Patient arrived from ED at 1451hr via gurney, accompanied by ED nurse. Drowsy, but responds easily to verbal stimuli, oriented x4. Denies pain or discomfort at this time. VSS, spO2 98% on RA. Peripheral IV's x2 patent and intact. NS and KCl infusing per EMAR. Jolly cath patent and intact, draining clear yellow urine. Patient placed on 2MD hold in ED per intentional polysubstance OD. Room Mitigation complete prior to arrival. Civil rights read to patient upon arrival. Electronic hold order placed. Patient refused to answer questions r/t suicide assessment. Confirmed moderate-risk with Karri Medley [employer] after refusal for re-assessment of suicide severity. Confirmed camera's for central monitoring turned on. Will continue to monitor.
--- NOTE | 2021-01-15 18:29 | NUR ---
Shift Summary: No significant changes since admission to ICU. Patient remains drowsy, but responding easily to verbal stimuli, VS remain stable. Repeat salicylates level received shortly after admission which showed decrease from 4.9 to 3.9, spoke with Karri Medley NP and instructed no need to assess further levels. Remains calm and cooperative with staff, sleeping when not woken. No N/V. Jolly cath remains patent and intact, draining clear yellow urine. Will continue to monitor until report to NOC shift RN.
--- NOTE | 2021-01-15 19:45 | NUR ---
PT IS ALERT AND ORIENTED, COOPERATIVE WITH CARE. PT DENIES ANY SUICIDAL THOUGHTS OR SUICIDE PLAN. PT REMAINS DROWSY, BUT IS ALERT TO PERSON, PLACE, DATE/TIME. PT IS REQUESTING FOOD, REPORTS SHE IS "STARVING." VSS. GRAFF IS PATENT, DRAINING CLEAR YELLOW URINE. CALL LIGHT WITHIN REACH. BED IN LOW POSITION.
--- NOTE | 2021-01-15 19:54 | NUR ---
PT DENIES HAVING ANY SUICIDAL THOUGHTS AT THIS TIME, PT DENIES A SUICIDAL PLAN. PT IS ON AN INVOLUNTARY HOLD. PT WAS SLEEPING UPON ENTERING ROOM. PT'S MAIN COMPLAINT IS "SHE IS STARVING." PT IS CURRENTLY NPO.
--- NOTE | 2021-01-15 22:25 | NUR ---
I SPOKE TO GERSNO, POISON CONTROL, REVIEWED PT STATUS WITH POISON CONTROL. POISON CONTROL RECOMMENDED 1 REPEAT SALICYLATE LEVEL TONIGHT. WILL FOLLOW UP WITH DR. FITZGERALD REGARDING THE ABOVE.
--- NOTE | 2021-01-16 00:40 | NUR ---
GERSON, POISON CONTROL CALLED - REVIEWED NO CHANGE IN SALICYLATE LEVEL, CONTINUES AT 3.9. NO FURTHER RECOMMENDATION FROM POISON CONTROL.
--- NOTE | 2021-01-16 03:15 | NUR ---
SPOKE TO - REPORTED INCREASED RESPIRATORY RATE IN 30'S, WITH BILATERAL RHONCHI IN LOWER LOBES, AND PT IS MORBIDLY OBESE. TRANSIT DEPARTMENT CLERK CURRENTLY IN ROOM, PT AWAKE. NEW ORDERS OBTAINED FOR CPAP, PER RESPIRATORY PROTOCOL - NOTIFIED RT NAY.
--- NOTE | 2021-01-16 03:34 | NUR ---
PT IS ON HER PERIOD, TAMPON CHANGED BY PCT, AYDE - PT HAS CLOTS MIXED WITH BLOOD - PT REPORTS TO RN, THAT THIS IS "NORMAL FOR HER" AND IT HAS "GOTTEN WORSE OVER THE YEARS." PT DENIES FEELING SOB. COOL WASHCLOTHS PROVIDED FOR COMFORT. PT'S FACE IS FLUSHED, AFEBRILE. CALL LIGHT WITHIN REACH. BED IN LOW POSITION. DIET PEPSI AND WATER PROVIDED PER REQUEST. PT DENIES ANY OTHER REQUESTS/NEEDS.
[2021-01-16 04:05] LABS: BASOPHILS ABSOLUTE AUTO 0.04 K/mm3 (0.00-0.23); BASOPHILS PERCENT AUTO 1 % (0-2); EOSINOPHILS ABSOLUTE AUTO 0.12 K/mm3 (0.00-0.68); EOSINOPHILS PERCENT AUTO 2 % (0-6); Hematocrit 31.3 % (33.0-51.0); Hemoglobin 10.2 g/dL (11.5-16.0); IMMATURE GRAN ABSOLUTE AUTO 0.04 K/mm3 (0.00-0.10); IMMATURE GRAN PERCENT AUTO 1 % (0-1); LYMPHOCYTES ABSOLUTE AUTO 2.26 K/mm3 (0.84-5.20); LYMPHOCYTES PERCENT AUTO 28 % (21-46); MONOCYTES ABSOLUTE AUTO 0.45 K/mm3 (0.16-1.47); MONOCYTES PERCENT AUTO 6 % (4-13); Mean Corpuscular HGB 28.6 pg (26.0-34.0); Mean Corpuscular HGB Conc 32.6 g/dL (31.5-36.5); Mean Corpuscular Volume 88 fL (80-100); Mean Platelet Volume 10.5 fL (9.1-12.4); NEUTROPHILS ABSOLUTE AUTO 5.23 K/mm3 (1.96-9.15); NEUTROPHILS PERCENT AUTO 64 % (41-73); Platelet Count 266 K/mm3 (150-400); RDW Coefficient Variation 13.4 % (11.7-14.2); RDW Standard Deviation 42.9 fL (35.1-46.3); Red Blood Cell Count 3.57 M/mm3 (3.80-5.20); White Blood Cell Count 8.14 K/mm3 (4.00-11.30)
[2021-01-16 04:23] LABS: Alanine Aminotransfer (ALT/SGP 24 U/L (12-78); Albumin/Globulin Ratio 0.9 (0.8-1.8); Alk Phos 85 U/L (50-136); Anion Gap 6 mmol/L (6-16); Aspartate Aminotrans (AST/SGOT 13 U/L (12-37); Bilirubin, Total 0.1 mg/dL (0.1-1.0); Blood Urea Nitrogen 6 mg/dL (8-24); Bun/Creatinine Ratio 7.7 (12.0-20.0); CO2, Blood 24 mmol/L (21-32); Calcium, Blood 7.9 mg/dL (8.5-10.1); Chloride, Blood 113 mmol/L (98-108); Creatinine, Blood 0.78 mg/dL (0.40-1.00); Globulin, Blood 3.5 g/dL (2.2-4.0); Glomerular Filtration Rate >60 (60-); Glucose, Blood 126 mg/dL (70-99); Phosphorus, Blood 3.3 mg/dL (2.5-4.9); Potassium, Blood 3.2 mmol/L (3.5-5.5); Sodium, Blood 143 mmol/L (136-145); Total Protein, Blood 6.5 g/dL (6.4-8.2)
--- NOTE | 2021-01-16 06:02 | NUR ---
SHIFT SUMMARY - BNP WNL THIS AM. PT HAS SLEPT OFF/ON THROUGHOUT MOST OF THE NIGHT, AWAKENED EASY WITH VERBAL COMMUNICATION. PT DENIED ANY SOB THROUGHOUT THE NIGHT - PT ON RA. RESPIRATORY RATE MAINTAINING IN 30'S. PT DENIED FEELING SUICIDAL OR HAVING A PLAN. WILL CONTINUE TO MONITOR UNTIL AM SHIFT CHANGE. FLUIDS AT BEDSIDE. CALL LIGHT WITHIN REACH. BED IN LOW POSITION.
--- NOTE | 2021-01-16 14:06 | NUR ---
PT A/O X4, TALKING IN FULL SENTENCES. PT HAS BEEN UP TO SHOWER TODAY. PT IS SLEEPING T/O THE DAY, VERY ANXIOUS ABOUT WHEN DR WINN WILL BE IN TO SEE HER TODAY, APPEARS FIXATED ON THE THOUGHT OF HIS ASSESSMENT TODAY. VSS. PT DENIES ANY SI/HI. PT CONTINUES TO BE MONITORED VIA CAMERA IN ROOM. LT HAND IV WAS DC PT HAD BECOME TANGLED IN IV LINE AND THE IV INFILTRATED, THERE IS NO SWELLING OR PAIN TO THE SITE. NADN. VSS. PT WILL BE TRANSFERED TO MEDCIAL FLOOR FOR CONTINUATION OF CARE
--- NOTE | 2021-01-16 18:42 | NUR ---
THERE ARE NO ACUTE CHANGES SINCE LAST NOTE ENTRY. PT IS RESTING WELL IN BED AT THIS TIME. CONTINUES TO DENY SI/HI. CONTINUOUS CAMERA MONITORING IN PLACE. PT INDEPENDANT TO COMMODE
--- NOTE | 2021-01-16 20:01 | NUR ---
PATIENT STATED UPON ASSESSMENT NO CURRENT THOUGHTS, PLANS TO END HER LIFE, IS ASKING IF SHE CAN HAVE SOMETHING TO EAT AND IS CALM IN BED RESTING WATCHING TV.
--- NOTE | 2021-01-16 23:27 | NUR ---
PT VERY TEARFUL, STATES,"I JUST WANT TO TALK TO MY DOCTOR". TRIED TO GET PT TO EXPLAIN WHAT IS WRONG. PT STATES,"I'M NOT CRAZY I JUST WANT TO GET SOMETHING FOR SLEEP". CALL TO ORDER OBTAINED FOR ATIVAN 0.5 MG PO.
--- NOTE | 2021-01-16 23:41 | NUR ---
THIS LN GAVE REPORT TO NATHAN VILLASENOR FROM THIRD FLOOR PATIENT GOING INTO ROOM 350
--- NOTE | 2021-01-17 00:06 | NUR ---
PATIENT TRANSFER FROM ICU 01. REPORT TAKEN FROM MASTER VILLASENOR. ARRIVED VIA W/C. PATIENT INDEPENDENT TO BATHROOM. SECURITY X 2 PRESENT DURING TRANSFER. ARRIVED WITH PERSONAL BELONGINGS. PATIENT RESTING IN BED.
--- NOTE | 2021-01-17 04:06 | NUR ---
SHIFT SUMMARY PATIENT REPORTED SHE WANTED TO MEET AND SMOKE WITH HER OUTSIDE. WHEN DENIED SHE ASKED IF SHE COULD LEAVE WITH HER AMA. PATIENT REMINDED SHE IS ON AN INVOLUNTARY HOLD. SHE NEXT REPORTED SHE HAS A JOB INTERVIEW IN THE AM. PATIENT STAYING IN ROOM AT THIS TIME. AXOX 4 AND INDEPENDENT IN ROOM. NO SUICIDAL IDEATION. NO IV ACCESS. DENIES PAIN, SOB, AND N/V. VSS/AFEBRILE. PATIENT WILL WAIT TO SEE DOCTORS IN MORNING. ON CAMERA. NO EVENTS. CALL LIGHT IN REACH. BED IN LOWEST POSITION. WILL CONTINUE TO MONITOR UNTIL DAY SHIFT NURSE ASSUMES CARE.
[2021-01-17] MEDS ORDERED: LAMO100 PO (12:13)
--- NOTE | 2021-01-17 13:05 | NUR ---
SHIFT SUMMARY PT A/O X4; PLEASANT AND COOPERATIVE WITH CARE. DENIES ANY SI AND IS ANXIOUS TO GET HOME. DAUGHTER CALLED AND EXPRESSED CONCERN THAT MOTHER MAY BE A FLIGHT RISK AND NOT COME HOME WHEN DISCHARGED DUE TO WHAT THE PATIENT SAID TO HER TODAY. PT DENIED THIS AND SAID IT WAS A MISUNDERSTANDING. CALLED TO CONFIRM. VSS. DC'D HOME AND WAS PICKED UP BY DAUGHTER.
[2021-01-19] MEDS ORDERED: LORA2 PO (06:53)
== END 2021-01-17 12:32 | disposition home or self-care (01) | DRG 918 ==
LOC: ER 11:18 → ICUW 13:22 → ICUE 13:22 → MEDS 01-17 00:02
PROVIDERS: Emergency Medicine; Nurse Practitioner Acute Care; ADMIT Internal Medicine
DX: T43.022A Poisoning by tetracyclic antidepressants, intentional self-harm, initial encounter (principal); G43.909 Migraine, unspecified, not intractable, without status migrainosus; I10 Essential (primary) hypertension; F17.210 Nicotine dependence, cigarettes, uncomplicated; T42.8X2A Poisoning by antiparkinsonism drugs and other central muscle-tone depressants, intentional self-harm, initial encounter; E66.01 Morbid (severe) obesity due to excess calories; E11.9 Type 2 diabetes mellitus without complications; F41.8 Other specified anxiety disorders; E87.6 Hypokalemia; F33.41 Major depressive disorder, recurrent, in partial remission; Z68.35 Body mass index [BMI] 35.0-35.9, adult; Z90.49 Acquired absence of other specified parts of digestive tract; Z98.890 Other specified postprocedural states; Z98.891 History of uterine scar from previous surgery; Z79.4 Long term (current) use of insulin; Z79.899 Other long term (current) drug therapy; X58.XXXA Exposure to other specified factors, initial encounter
CPT/HCPCS: 36415; 51702; 71045; 80053; 80175; 81001; 81025; 82947; 83735; 83880; 84100; 85025; 93005; 93010; 96365-59; 99285-25; A9270; G0480; J1650; J3480; J7030

== ENCOUNTER 2021-02-03 06:39 | Emergency (ER) | payer OTHER ==
[~2021-02-03] VITALS: Ht 162.6 cm; Wt 104.3 kg
[~2021-02-03 06:39] MED LIST changes: +ALPRAZOLAM PO; +AMLODIPINE BESY10 MG PO; +BASAGLAR K100 UNIT/8 SC; +GLUCOPHAGE1000 M5 PO; +LAMO100 PO; +LAMOTRIGINE100 M1 PO; +LORA2 PO; +MIRT30 PO; +ROPI.25 PO
[2021-02-03] MEDS ORDERED: KLONOPIN0.5 M3 PO (06:48)
[2021-02-03] MEDS ORDERED: OLANZAPINE PO (06:49)
[2021-02-03] MEDS ORDERED: REMERON30 M3 PO (06:49)
[2021-02-03 07:19] LABS: BASOPHILS ABSOLUTE AUTO 0.05 K/mm3 (0.00-0.23); BASOPHILS PERCENT AUTO 1 % (0-2); EOSINOPHILS ABSOLUTE AUTO 0.16 K/mm3 (0.00-0.68); EOSINOPHILS PERCENT AUTO 2 % (0-6); Hematocrit 32.6 % (33.0-51.0); Hemoglobin 10.5 g/dL (11.5-16.0); IMMATURE GRAN ABSOLUTE AUTO 0.12 K/mm3 (0.00-0.10); IMMATURE GRAN PERCENT AUTO 1 % (0-1); LYMPHOCYTES ABSOLUTE AUTO 2.06 K/mm3 (0.84-5.20); LYMPHOCYTES PERCENT AUTO 24 % (21-46); MONOCYTES ABSOLUTE AUTO 0.54 K/mm3 (0.16-1.47); MONOCYTES PERCENT AUTO 6 % (4-13); Mean Corpuscular HGB 27.8 pg (26.0-34.0); Mean Corpuscular HGB Conc 32.2 g/dL (31.5-36.5); Mean Corpuscular Volume 86 fL (80-100); NEUTROPHILS PERCENT AUTO 66 % (41-73); Platelet Count 270 K/mm3 (150-400); RDW Coefficient Variation 13.5 % (11.7-14.2); RDW Standard Deviation 42.9 fL (35.1-46.3); Red Blood Cell Count 3.78 M/mm3 (3.80-5.20); White Blood Cell Count 8.53 K/mm3 (4.00-11.30)
[2021-02-03 07:42] LABS: Acetaminophen, Random <2.0 ug/mL (10.0-30.0); Alanine Aminotransfer (ALT/SGP 31 U/L (12-78); Albumin/Globulin Ratio 0.8 (0.8-1.8); Alk Phos 88 U/L (50-136); Anion Gap 9 mmol/L (6-16); Aspartate Aminotrans (AST/SGOT 12 U/L (12-37); Bilirubin, Total 0.1 mg/dL (0.1-1.0); Blood Urea Nitrogen 15 mg/dL (8-24); Bun/Creatinine Ratio 20.2 (12.0-20.0); CO2, Blood 23 mmol/L (21-32); Calcium, Blood 8.3 mg/dL (8.5-10.1); Chloride, Blood 105 mmol/L (98-108); Creatinine, Blood 0.74 mg/dL (0.40-1.00); Ethanol (Alcohol), Blood, Med <3 mg/dL; Globulin, Blood 3.8 g/dL (2.2-4.0); Glomerular Filtration Rate >60 (60-); Glucose, Blood 183 mg/dL (70-99); Potassium, Blood 3.8 mmol/L (3.5-5.5); Salicylate 3.3 mg/dL (2.8-20.0); Sodium, Blood 137 mmol/L (136-145); Total Protein, Blood 6.8 g/dL (6.4-8.2)
== END 2021-02-03 08:46 | disposition home or self-care (01) ==
LOC: ER 06:39
PROVIDERS: Emergency Medicine
DX: R56.9 Unspecified convulsions (principal); I10 Essential (primary) hypertension; E11.9 Type 2 diabetes mellitus without complications; F17.210 Nicotine dependence, cigarettes, uncomplicated; Z79.899 Other long term (current) drug therapy
CPT/HCPCS: 36415; 80053; 85025; 99284; G0480

== ENCOUNTER 2021-02-26 03:52 | Emergency (ER) | payer OTHER ==
[~2021-02-26] VITALS: Ht 165.1 cm; Wt 108.9 kg
[~2021-02-26 03:52] MED LIST changes: +KLONOPIN0.5 M3 PO; +OLANZAPINE PO; +REMERON30 M3 PO
[2021-02-26] MEDS ORDERED: IBUP600 PO (04:57)
== END 2021-02-26 05:15 | disposition home or self-care (01) ==
LOC: ER 03:52
DX: S80.12XA Contusion of left lower leg, initial encounter (principal); S80.11XA Contusion of right lower leg, initial encounter; S80.212A Abrasion, left knee, initial encounter; F17.210 Nicotine dependence, cigarettes, uncomplicated; E11.9 Type 2 diabetes mellitus without complications; I10 Essential (primary) hypertension; R05 Cough; Z88.8 Allergy status to other drugs, medicaments and biological substances; Z20.822 Contact with and (suspected) exposure to COVID-19; Z79.899 Other long term (current) drug therapy; W01.0XXA Fall on same level from slipping, tripping and stumbling without subsequent striking against object, initial encounter; Y99.0 Civilian activity done for income or pay
CPT/HCPCS: 73590; 99283-25

== ENCOUNTER → 2021-03-26 | Outpatient (CLI) | payer OTHER ==
[2021-03-27 10:33] LABS: Candida species (DNA Probe) Positive (NEGATIVE); G. vaginalis (DNA Probe) Negative (NEGATIVE); T. vaginalis (DNA Probe) Negative (NEGATIVE)
== END | disposition home or self-care (01) ==
LOC: LAB SHORT 17:47
PROVIDERS: Nurse Practitioner Family
DX: N89.8 Other specified noninflammatory disorders of vagina (principal)
CPT/HCPCS: 87480; 87510; 87660

== ENCOUNTER → 2021-09-30 | Outpatient (CLI) | payer OTHER ==
[2021-09-30 13:55] LABS: Candida species (DNA Probe) Positive (NEGATIVE); G. vaginalis (DNA Probe) Negative (NEGATIVE); T. vaginalis (DNA Probe) Negative (NEGATIVE)
== END ==
LOC: LAB SHORT 09:53
PROVIDERS: Nurse Practitioner
DX: N89.8 Other specified noninflammatory disorders of vagina (principal)
CPT/HCPCS: 87480; 87510; 87660

== ENCOUNTER → 2022-02-18 | Outpatient (CLI) | payer OTHER | END | disposition home or self-care (01) | LOC: LAB SHORT 13:20 → LAB 13:20 | DX: L02.211 Cutaneous abscess of abdominal wall (principal) | CPT/HCPCS: 87070; 87075; 87147; 87205 ==

== ENCOUNTER 2022-09-27 23:34 | Emergency (ER) | payer OTHER ==
[~2022-09-27] VITALS: Ht 162.6 cm; Wt 99.8 kg
== END 2022-09-28 02:17 | disposition home or self-care (01) ==
LOC: ER 23:34
DX: S80.12XA Contusion of left lower leg, initial encounter (principal); I10 Essential (primary) hypertension; E11.9 Type 2 diabetes mellitus without complications; F17.210 Nicotine dependence, cigarettes, uncomplicated; W19.XXXA Unspecified fall, initial encounter; Z88.8 Allergy status to other drugs, medicaments and biological substances; Z79.899 Other long term (current) drug therapy
CPT/HCPCS: 73590; 99283-25

== ENCOUNTER 2023-01-14 14:36 | Emergency (ER) | payer OTHER ==
[~2023-01-14] VITALS: Ht 162.6 cm; Wt 99.8 kg
[2023-01-14 14:48] VITALS: BP 158/107
[2023-01-14 16:05] LABS: BASOPHILS ABSOLUTE AUTO 0.05 K/mm3 (0.00-0.23); BASOPHILS PERCENT AUTO 1 % (0-2); EOSINOPHILS ABSOLUTE AUTO 0.26 K/mm3 (0.00-0.68); EOSINOPHILS PERCENT AUTO 3 % (0-6); Hematocrit 34.9 % (33.0-51.0); Hemoglobin 11.4 g/dL (11.5-16.0); IMMATURE GRAN ABSOLUTE AUTO 0.09 K/mm3 (0.00-0.10); IMMATURE GRAN PERCENT AUTO 1 % (0-1); LYMPHOCYTES ABSOLUTE AUTO 2.83 K/mm3 (0.84-5.20); LYMPHOCYTES PERCENT AUTO 27 % (21-46); MONOCYTES ABSOLUTE AUTO 0.54 K/mm3 (0.16-1.47); MONOCYTES PERCENT AUTO 5 % (4-13); Mean Corpuscular HGB 27.1 pg (26.0-34.0); Mean Corpuscular HGB Conc 32.7 g/dL (31.5-36.5); Mean Corpuscular Volume 83 fL (80-100); Mean Platelet Volume 10.9 fL (9.1-12.4); NEUTROPHILS ABSOLUTE AUTO 6.61 K/mm3 (1.96-9.15); NEUTROPHILS PERCENT AUTO 64 % (41-73); Platelet Count 304 K/mm3 (150-400); RDW Coefficient Variation 13.7 % (11.7-14.2); RDW Standard Deviation 41.3 fL (35.1-46.3); White Blood Cell Count 10.38 K/mm3 (4.00-11.30)
[2023-01-14 16:31] LABS: Alanine Aminotransfer (ALT/SGP 28 U/L (12-78); Albumin, Blood 3.3 g/dL (3.4-5.0); Albumin/Globulin Ratio 0.9 (0.8-1.8); Alk Phos 115 U/L (50-136); Anion Gap 10 mmol/L (6-16); Aspartate Aminotrans (AST/SGOT 20 U/L (12-37); Bilirubin, Total <0.1 mg/dL (0.1-1.0); Blood Urea Nitrogen 6 mg/dL (8-24); Bun/Creatinine Ratio 8.9 (12.0-20.0); CO2, Blood 22 mmol/L (21-32); Calcium, Blood 8.4 mg/dL (8.5-10.1); Chloride, Blood 103 mmol/L (98-108); Creatinine, Blood 0.67 mg/dL (0.40-1.00); Globulin, Blood 3.5 g/dL (2.2-4.0); Glomerular Filtration Rate 110 (60-); Glucose, Blood 293 mg/dL (70-99); Potassium, Blood 3.8 mmol/L (3.5-5.5); Sodium, Blood 135 mmol/L (136-145); Total Protein, Blood 6.8 g/dL (6.4-8.2)
== END 2023-01-14 15:53 | disposition left against medical advice (07) ==
LOC: ER 14:36
PROVIDERS: Student in an Organized Health Care Education/Training Program
DX: Z53.21 Procedure and treatment not carried out due to patient leaving prior to being seen by health care provider (principal); I10 Essential (primary) hypertension; E11.9 Type 2 diabetes mellitus without complications; Z88.8 Allergy status to other drugs, medicaments and biological substances; Z88.6 Allergy status to analgesic agent
CPT/HCPCS: 80053; 84484; 85025; 93005; 93010

== ENCOUNTER 2023-01-16 15:24 | Emergency (ER) | payer OTHER ==
[~2023-01-16] VITALS: Ht 162.6 cm; Wt 99.8 kg
[2023-01-16] MEDS ORDERED: ATEN25 PO (16:21)
[2023-01-16 16:45] VITALS: BP 123/85
== END 2023-01-16 16:48 | disposition home or self-care (01) ==
LOC: ER 15:24
DX: I10 Essential (primary) hypertension (principal); R00.0 Tachycardia, unspecified; Z88.8 Allergy status to other drugs, medicaments and biological substances; Z79.51 Long term (current) use of inhaled steroids; Z79.899 Other long term (current) drug therapy; E11.9 Type 2 diabetes mellitus without complications; G43.909 Migraine, unspecified, not intractable, without status migrainosus; F17.210 Nicotine dependence, cigarettes, uncomplicated
CPT/HCPCS: 93005; 93010; 96372; 99283-25; J1200; J1885

== ENCOUNTER 2023-01-30 15:35 | Emergency (ER) | payer OTHER ==
[~2023-01-30] VITALS: Ht 162.6 cm; Wt 99.8 kg
[~2023-01-30 15:35] MED LIST changes: +ATEN25 PO
[2023-01-30] MEDS ORDERED: Seroquel Xr50 MG PO (15:45)
[2023-01-30 16:03] LABS: BASOPHILS ABSOLUTE AUTO 0.05 K/mm3 (0.00-0.23); BASOPHILS PERCENT AUTO 1 % (0-2); EOSINOPHILS ABSOLUTE AUTO 0.21 K/mm3 (0.00-0.68); EOSINOPHILS PERCENT AUTO 3 % (0-6); Hematocrit 35.4 % (33.0-51.0); Hemoglobin 11.6 g/dL (11.5-16.0); IMMATURE GRAN ABSOLUTE AUTO 0.07 K/mm3 (0.00-0.10); IMMATURE GRAN PERCENT AUTO 1 % (0-1); LYMPHOCYTES ABSOLUTE AUTO 1.98 K/mm3 (0.84-5.20); LYMPHOCYTES PERCENT AUTO 29 % (21-46); MONOCYTES PERCENT AUTO 6 % (4-13); Mean Corpuscular HGB 26.9 pg (26.0-34.0); Mean Corpuscular HGB Conc 32.8 g/dL (31.5-36.5); Mean Corpuscular Volume 82 fL (80-100); Mean Platelet Volume 11.2 fL (9.1-12.4); NEUTROPHILS ABSOLUTE AUTO 4.24 K/mm3 (1.96-9.15); NEUTROPHILS PERCENT AUTO 61 % (41-73); Platelet Count 288 K/mm3 (150-400); RDW Standard Deviation 42.2 fL (35.1-46.3); Red Blood Cell Count 4.31 M/mm3 (3.80-5.20); White Blood Cell Count 6.95 K/mm3 (4.00-11.30)
[2023-01-30 16:27] LABS: Albumin, Blood 3.3 g/dL (3.4-5.0); Albumin/Globulin Ratio 0.8 (0.8-1.8); Bilirubin, Total 0.2 mg/dL (0.1-1.0); Bun/Creatinine Ratio 20.1 (12.0-20.0); Calcium, Blood 8.7 mg/dL (8.5-10.1); Creatinine, Blood 0.45 mg/dL (0.40-1.00); Globulin, Blood 4.1 g/dL (2.2-4.0); Potassium, Blood 4.2 mmol/L (3.5-5.5); Total Protein, Blood 7.4 g/dL (6.4-8.2)
[2023-01-30 17:47] VITALS: BP 118/75
== END 2023-01-30 17:48 | disposition home or self-care (01) ==
LOC: ER 15:35
PROVIDERS: Emergency Medicine
DX: G40.909 Epilepsy, unspecified, not intractable, without status epilepticus (principal); R41.82 Altered mental status, unspecified; R51.9 Headache, unspecified; Z79.899 Other long term (current) drug therapy; Z79.1 Long term (current) use of non-steroidal anti-inflammatories (NSAID); E11.9 Type 2 diabetes mellitus without complications; I10 Essential (primary) hypertension; F17.210 Nicotine dependence, cigarettes, uncomplicated
CPT/HCPCS: 80053; 82947; 85025; 93005; 93010; 96374; 96375; 99284-25; J1200; J1885; J2765; J7030

== ENCOUNTER 2023-03-07 19:17 | Emergency (ER) | payer OTHER ==
[~2023-03-07] VITALS: Ht 162.6 cm; Wt 97.4 kg
[~2023-03-07 19:17] MED LIST changes: +Seroquel Xr50 MG PO
[2023-03-07 19:20] VITALS: BP 141/94
[2023-03-07 20:13] LABS: BASOPHILS ABSOLUTE AUTO 0.04 K/mm3 (0.00-0.23); BASOPHILS PERCENT AUTO 1 % (0-2); EOSINOPHILS ABSOLUTE AUTO 0.19 K/mm3 (0.00-0.68); EOSINOPHILS PERCENT AUTO 2 % (0-6); Hematocrit 39.1 % (33.0-51.0); IMMATURE GRAN ABSOLUTE AUTO 0.04 K/mm3 (0.00-0.10); IMMATURE GRAN PERCENT AUTO 1 % (0-1); LYMPHOCYTES ABSOLUTE AUTO 2.13 K/mm3 (0.84-5.20); LYMPHOCYTES PERCENT AUTO 27 % (21-46); MONOCYTES ABSOLUTE AUTO 0.41 K/mm3 (0.16-1.47); MONOCYTES PERCENT AUTO 5 % (4-13); Mean Corpuscular HGB Conc 33.2 g/dL (31.5-36.5); Mean Corpuscular Volume 81 fL (80-100); Mean Platelet Volume 11.1 fL (9.1-12.4); NEUTROPHILS ABSOLUTE AUTO 5.04 K/mm3 (1.96-9.15); NEUTROPHILS PERCENT AUTO 64 % (41-73); Platelet Count 289 K/mm3 (150-400); RDW Coefficient Variation 14.1 % (11.7-14.2); RDW Standard Deviation 40.8 fL (35.1-46.3); Red Blood Cell Count 4.82 M/mm3 (3.80-5.20); White Blood Cell Count 7.85 K/mm3 (4.00-11.30)
[2023-03-07 20:39] LABS: Bilirubin, Total 0.3 mg/dL (0.1-1.0); Bun/Creatinine Ratio 5.7 (12.0-20.0); Creatinine, Blood 0.7 mg/dL (0.40-1.00); Globulin, Blood 3.9 g/dL (2.2-4.0); Potassium, Blood 2.6 mmol/L (3.5-5.5); Total Protein, Blood 7.9 g/dL (6.4-8.2)
[2023-03-07] MEDS ORDERED: ONDA4ODT MM (20:49)
[2023-03-07] MEDS ORDERED: K-Dur20 MEQ PO (20:49)
== END 2023-03-07 21:20 | disposition home or self-care (01) ==
LOC: ER 19:17
PROVIDERS: Physician Assistant
DX: E87.6 Hypokalemia (principal); R11.0 Nausea; R63.0 Anorexia; I10 Essential (primary) hypertension; E11.9 Type 2 diabetes mellitus without complications; F17.210 Nicotine dependence, cigarettes, uncomplicated; Z88.8 Allergy status to other drugs, medicaments and biological substances; Z79.899 Other long term (current) drug therapy
CPT/HCPCS: 80053; 85025; A9270; J1200; J2405; J7030

== ENCOUNTER 2023-03-16 07:53 | Emergency (ER) | payer OTHER ==
[~2023-03-16] VITALS: Ht 165.1 cm; Wt 97.1 kg
[~2023-03-16 07:53] MED LIST changes: +K-Dur20 MEQ PO; +ONDA4ODT MM
[2023-03-16 09:44] LABS: Albumin, Blood 3.7 g/dL (3.4-5.0); Bilirubin, Total 0.3 mg/dL (0.1-1.0); Bun/Creatinine Ratio 8.6 (12.0-20.0); Calcium, Blood 8.7 mg/dL (8.5-10.1); Creatinine, Blood 0.7 mg/dL (0.40-1.00); Globulin, Blood 3.7 g/dL (2.2-4.0); Potassium, Blood 3.5 mmol/L (3.5-5.5); Total Protein, Blood 7.4 g/dL (6.4-8.2)
[2023-03-16] MEDS ORDERED: OZEMPIC0.25 MG/02 SQ (10:30)
[2023-03-16 10:31] LABS: BASOPHILS ABSOLUTE AUTO 0.04 K/mm3 (0.00-0.23); BASOPHILS PERCENT AUTO 0 % (0-2); EOSINOPHILS ABSOLUTE AUTO 0.29 K/mm3 (0.00-0.68); EOSINOPHILS PERCENT AUTO 3 % (0-6); Hematocrit 35.8 % (33.0-51.0); IMMATURE GRAN ABSOLUTE AUTO 0.05 K/mm3 (0.00-0.10); IMMATURE GRAN PERCENT AUTO 1 % (0-1); LYMPHOCYTES ABSOLUTE AUTO 2.74 K/mm3 (0.84-5.20); LYMPHOCYTES PERCENT AUTO 28 % (21-46); MONOCYTES ABSOLUTE AUTO 0.61 K/mm3 (0.16-1.47); MONOCYTES PERCENT AUTO 6 % (4-13); Mean Corpuscular HGB 27.2 pg (26.0-34.0); Mean Corpuscular HGB Conc 33.5 g/dL (31.5-36.5); Mean Corpuscular Volume 81 fL (80-100); Mean Platelet Volume 10.7 fL (9.1-12.4); NEUTROPHILS ABSOLUTE AUTO 5.91 K/mm3 (1.96-9.15); NEUTROPHILS PERCENT AUTO 61 % (41-73); Platelet Count 275 K/mm3 (150-400); RDW Coefficient Variation 14.7 % (11.7-14.2); RDW Standard Deviation 43.4 fL (35.1-46.3); Red Blood Cell Count 4.41 M/mm3 (3.80-5.20); White Blood Cell Count 9.64 K/mm3 (4.00-11.30)
[2023-03-16 11:55] VITALS: BP 133/82
[2023-03-17] MEDS ORDERED: CLON1 PO (19:05)
[2023-03-17] MEDS ORDERED: QUET100 PO (19:05)
[2023-03-17] MEDS ORDERED: ROPI.25 PO (19:06)
== END 2023-03-16 11:56 | disposition home or self-care (01) ==
LOC: ER 07:53
PROVIDERS: Physician Assistant
DX: R11.2 Nausea with vomiting, unspecified (principal); Z88.8 Allergy status to other drugs, medicaments and biological substances; Z79.899 Other long term (current) drug therapy; E11.9 Type 2 diabetes mellitus without complications; G43.909 Migraine, unspecified, not intractable, without status migrainosus; I10 Essential (primary) hypertension; F17.210 Nicotine dependence, cigarettes, uncomplicated
CPT/HCPCS: 80053; 85025; 96361; 96374; 96375; 99283-25; J1200; J2405; J7030

== ENCOUNTER 2023-03-16 18:28 | Emergency (ER) | payer OTHER ==
[~2023-03-16] VITALS: Ht 162.6 cm; Wt 98.0 kg
[~2023-03-16 18:28] MED LIST changes: +OZEMPIC0.25 MG/02 SQ
[2023-03-16 18:56] VITALS: BP 152/112
[2023-03-17] MEDS ORDERED: QUET100 PO (19:05)
[2023-03-17] MEDS ORDERED: CLON1 PO (19:05)
[2023-03-17] MEDS ORDERED: ROPI.25 PO (19:06)
== END 2023-03-16 19:00 | disposition left against medical advice (07) ==
LOC: ER 18:28
DX: R68.2 Dry mouth, unspecified (principal); L29.9 Pruritus, unspecified; Z88.8 Allergy status to other drugs, medicaments and biological substances; Z79.899 Other long term (current) drug therapy; E11.9 Type 2 diabetes mellitus without complications; G43.909 Migraine, unspecified, not intractable, without status migrainosus; I10 Essential (primary) hypertension; F17.210 Nicotine dependence, cigarettes, uncomplicated
CPT/HCPCS: 99282

== ENCOUNTER 2023-03-17 18:05 | Observation (INO) | payer OTHER ==
[~2023-03-17] VITALS: Ht 165.1 cm; Wt 97.1 kg
[2023-03-17 18:15] VITALS: BP 148/112
[2023-03-17] MEDS ORDERED: QUET100 PO (19:05)
[2023-03-17] MEDS ORDERED: CLON1 PO (19:05)
[2023-03-17] MEDS ORDERED: ROPI.25 PO (19:06)
== END 2023-03-17 22:34 | disposition home or self-care (01) ==
LOC: ER 18:05 → EOR 18:06
PROVIDERS: ADMIT Emergency Medicine
DX: F32.A Depression, unspecified (principal); F41.9 Anxiety disorder, unspecified; Z88.8 Allergy status to other drugs, medicaments and biological substances; E11.9 Type 2 diabetes mellitus without complications; I10 Essential (primary) hypertension; F43.10 Post-traumatic stress disorder, unspecified; F17.210 Nicotine dependence, cigarettes, uncomplicated
CPT/HCPCS: 99285; A9270; G0378

== ENCOUNTER 2023-07-05 20:55 | Emergency (ER) | payer OTHER ==
[~2023-07-05] VITALS: Ht 165.1 cm; Wt 85.9 kg
[~2023-07-05 20:55] MED LIST changes: +QUET100 PO
[2023-07-05 21:02] VITALS: BP 101/80
[2023-07-05] MEDS ORDERED: QUET200 PO (21:44)
[2023-07-05] MEDS ORDERED: LOSA50 PO (21:45)
[2023-07-05] MEDS ORDERED: Methocarbamol750 MG PO (21:45)
[2023-07-05] MEDS ORDERED: HYDPAM50 PO (21:46)
[2023-07-05] MEDS ORDERED: NEURONTIN300 MG PO (21:46)
[2023-07-05] MEDS ORDERED: MELATONIN10 M6 PO (21:48)
[2023-07-05] MEDS ORDERED: LAMOTRIGINE25 M4 PO (21:48)
[2023-07-05] MEDS ORDERED: BUPR100ER PO (21:48)
[2023-07-05] MEDS ORDERED: PROZAC2010 PO (21:48)
[2023-07-05 21:54] LABS: BASOPHILS ABSOLUTE AUTO 0.02 K/mm3 (0.00-0.23); BASOPHILS PERCENT AUTO 0 % (0-2); EOSINOPHILS ABSOLUTE AUTO 0.18 K/mm3 (0.00-0.68); EOSINOPHILS PERCENT AUTO 2 % (0-6); Hemoglobin 13.7 g/dL (11.5-16.0); IMMATURE GRAN ABSOLUTE AUTO 0.02 K/mm3 (0.00-0.10); IMMATURE GRAN PERCENT AUTO 0 % (0-1); LYMPHOCYTES ABSOLUTE AUTO 2.13 K/mm3 (0.84-5.20); LYMPHOCYTES PERCENT AUTO 24 % (21-46); MONOCYTES ABSOLUTE AUTO 0.55 K/mm3 (0.16-1.47); MONOCYTES PERCENT AUTO 6 % (4-13); Mean Corpuscular HGB 27.9 pg (26.0-34.0); Mean Corpuscular HGB Conc 34.3 g/dL (31.5-36.5); Mean Corpuscular Volume 82 fL (80-100); Mean Platelet Volume 10.4 fL (9.1-12.4); NEUTROPHILS ABSOLUTE AUTO 5.88 K/mm3 (1.96-9.15); NEUTROPHILS PERCENT AUTO 67 % (41-73); Platelet Count 319 K/mm3 (150-400); RDW Coefficient Variation 12.2 % (11.7-14.2); RDW Standard Deviation 36.2 fL (35.1-46.3); Red Blood Cell Count 4.91 M/mm3 (3.80-5.20); White Blood Cell Count 8.78 K/mm3 (4.00-11.30)
[2023-07-05 22:28] LABS: Albumin, Blood 3.9 g/dL (3.4-5.0); Bilirubin, Total 0.3 mg/dL (0.1-1.0); Bun/Creatinine Ratio 12.5 (12.0-20.0); Calcium, Blood 8.9 mg/dL (8.5-10.1); Creatinine, Blood 0.96 mg/dL (0.40-1.00); Globulin, Blood 3.9 g/dL (2.2-4.0); Potassium, Blood 3.8 mmol/L (3.5-5.5); Total Protein, Blood 7.8 g/dL (6.4-8.2)
== END 2023-07-05 22:40 | disposition home or self-care (01) ==
LOC: ER 20:55
PROVIDERS: Student in an Organized Health Care Education/Training Program
DX: K52.9 Noninfective gastroenteritis and colitis, unspecified (principal); E11.9 Type 2 diabetes mellitus without complications; I10 Essential (primary) hypertension; F17.210 Nicotine dependence, cigarettes, uncomplicated
CPT/HCPCS: 80053; 83690; 85025; 96361; 96374; 96375; 99284-25; J1790; J2405; J7030

== ENCOUNTER 2023-08-23 17:32 | Emergency (ER) | payer OTHER ==
[~2023-08-23] VITALS: Ht 162.6 cm; Wt 72.6 kg
[~2023-08-23 17:32] MED LIST changes: +BUPR100ER PO; +HYDPAM50 PO; +LAMOTRIGINE25 M4 PO; +MELATONIN10 M6 PO; +Methocarbamol750 MG PO; +NEURONTIN300 MG PO; +PROZAC2010 PO
[2023-08-23 18:07] LABS: BASOPHILS ABSOLUTE AUTO 0.04 K/mm3 (0.00-0.23); BASOPHILS PERCENT AUTO 1 % (0-2); EOSINOPHILS ABSOLUTE AUTO 0.14 K/mm3 (0.00-0.68); EOSINOPHILS PERCENT AUTO 2 % (0-6); Hematocrit 40.3 % (33.0-51.0); Hemoglobin 13.4 g/dL (11.5-16.0); IMMATURE GRAN ABSOLUTE AUTO 0.02 K/mm3 (0.00-0.10); IMMATURE GRAN PERCENT AUTO 0 % (0-1); LYMPHOCYTES PERCENT AUTO 40 % (21-46); MONOCYTES ABSOLUTE AUTO 0.56 K/mm3 (0.16-1.47); MONOCYTES PERCENT AUTO 7 % (4-13); Mean Corpuscular HGB 26.3 pg (26.0-34.0); Mean Corpuscular HGB Conc 33.3 g/dL (31.5-36.5); Mean Corpuscular Volume 79 fL (80-100); Mean Platelet Volume 10.7 fL (9.1-12.4); NEUTROPHILS ABSOLUTE AUTO 4.01 K/mm3 (1.96-9.15); NEUTROPHILS PERCENT AUTO 50 % (41-73); Platelet Count 274 K/mm3 (150-400); RDW Coefficient Variation 12.2 % (11.7-14.2); RDW Standard Deviation 34.7 fL (35.1-46.3); Red Blood Cell Count 5.09 M/mm3 (3.80-5.20); White Blood Cell Count 7.97 K/mm3 (4.00-11.30)
[2023-08-23 18:26] LABS: Albumin, Blood 4.3 g/dL (3.4-5.0); Albumin/Globulin Ratio 1.1 (0.8-1.8); Bilirubin, Total 0.4 mg/dL (0.1-1.0); Bun/Creatinine Ratio 9.9 (12.0-20.0); Calcium, Blood 9.3 mg/dL (8.5-10.1); Creatinine, Blood 1.01 mg/dL (0.40-1.00); Globulin, Blood 3.8 g/dL (2.2-4.0); Magnesium, Blood 2.1 mg/dL (1.6-2.4); Potassium, Blood 4.5 mmol/L (3.5-5.5); Total Protein, Blood 8.1 g/dL (6.4-8.2)
[2023-08-23] MEDS ORDERED: Meclizine HCl 25 MG Tab PO ONE (20:20)
[2023-08-23] MEDS ORDERED: MECL25 PO (20:23)
[2023-08-23 20:30] VITALS: BP 98/71
== END 2023-08-23 20:40 | disposition home or self-care (01) ==
LOC: ER 17:32
PROVIDERS: Physician Assistant
DX: H81.10 Benign paroxysmal vertigo, unspecified ear (principal); R13.10 Dysphagia, unspecified; E87.1 Hypo-osmolality and hyponatremia; E11.9 Type 2 diabetes mellitus without complications; I10 Essential (primary) hypertension; F41.9 Anxiety disorder, unspecified; F32.A Depression, unspecified; F17.210 Nicotine dependence, cigarettes, uncomplicated; Z79.899 Other long term (current) drug therapy; F17.200 Nicotine dependence, unspecified, uncomplicated; Z88.8 Allergy status to other drugs, medicaments and biological substances
CPT/HCPCS: 80053; 83735; 85025; 99284; A9270

== ENCOUNTER → 2023-08-25 | Outpatient (CLI) | payer OTHER ==
[2023-08-25 12:25] LABS: U Barbituate Screen Not Detected; U Benzodiazapine Screen Not Detected; U Buprenorphine Screen Not Detected; U Cannabinoids Screen Not Detected; U Cocaine Screen Not Detected; U Methadone Screen Not Detected; U Methamphetamine Screen Not Detected; U Opiates Screen Not Detected; U Oxycodone Screen Not Detected; U Phencyclidine Screen Not Detected
[2023-08-25 14:03] LABS: U Amphetamine Screen Not Detected
[2023-09-02 10:01] LABS: AMITRIPTYLINE, QUANT, URN <100 ng/mL; CLOMIPRAMINE QUANT, URN <200 ng/mL; DESIPRAMINE QUANT, URN <100 ng/mL; DOXEPIN QUANT, URN <100 ng/mL; IMIPRAMINE QUANT, URN <100 ng/mL; NORCLOMIPRAMINE QUANT, URN <200 ng/mL; NORDOXEPIN QUANT, URN <100 ng/mL; NORTRIPTYLINE, QUANT, URN <100 ng/mL; PROTRIPTYLINE QUANT, URN <100 ng/mL
== END | disposition home or self-care (01) ==
LOC: LAB SHORT 09:26
PROVIDERS: Nurse Practitioner Family
DX: R89.2 Abnormal level of other drugs, medicaments and biological substances in specimens from other organs, systems and tissues (principal); R82.90 Unspecified abnormal findings in urine
CPT/HCPCS: 87086

== ENCOUNTER 2024-04-06 17:14 | Emergency (ER) | payer OTHER ==
[~2024-04-06] VITALS: Ht 157.5 cm; Wt 81.7 kg
[2024-04-06 17:50] LABS: BASOPHILS ABSOLUTE AUTO 0.06 K/mm3 (0.00-0.23); BASOPHILS PERCENT AUTO 1 % (0-2); EOSINOPHILS ABSOLUTE AUTO 0.21 K/mm3 (0.00-0.68); EOSINOPHILS PERCENT AUTO 2 % (0-6); Hematocrit 33.9 % (33.0-51.0); Hemoglobin 11.5 g/dL (11.5-16.0); IMMATURE GRAN ABSOLUTE AUTO 0.13 K/mm3 (0.00-0.10); IMMATURE GRAN PERCENT AUTO 1 % (0-1); LYMPHOCYTES ABSOLUTE AUTO 3.19 K/mm3 (0.84-5.20); LYMPHOCYTES PERCENT AUTO 32 % (21-46); MONOCYTES ABSOLUTE AUTO 0.59 K/mm3 (0.16-1.47); MONOCYTES PERCENT AUTO 6 % (4-13); Mean Corpuscular HGB 28.9 pg (26.0-34.0); Mean Corpuscular HGB Conc 33.9 g/dL (31.5-36.5); Mean Corpuscular Volume 85 fL (80-100); Mean Platelet Volume 10.1 fL (9.1-12.4); NEUTROPHILS ABSOLUTE AUTO 5.93 K/mm3 (1.96-9.15); NEUTROPHILS PERCENT AUTO 59 % (41-73); Platelet Count 281 K/mm3 (150-400); RDW Coefficient Variation 12.6 % (11.7-14.2); RDW Standard Deviation 39.3 fL (35.1-46.3); Red Blood Cell Count 3.98 M/mm3 (3.80-5.20); White Blood Cell Count 10.11 K/mm3 (4.00-11.30)
[2024-04-06] MEDS ORDERED: Venlafaxine HC150 MG PO (18:08)
[2024-04-06] MEDS ORDERED: METO5A PO (18:09)
[2024-04-06 18:17] LABS: Influenza A, PCR NEGATIVE (NEGATIVE); Influenza B, PCR NEGATIVE (NEGATIVE); Resp Syncytial Virus, PCR NEGATIVE (NEGATIVE); SARS-Cov-2 (COVID-19) PCR, MMC NEGATIVE (NEGATIVE)
[2024-04-06 18:53] LABS: Albumin, Blood 3.5 g/dL (3.4-5.0); Bilirubin, Total 0.2 mg/dL (0.1-1.0); Bun/Creatinine Ratio 13.3 (12.0-20.0); Calcium, Blood 8.4 mg/dL (8.5-10.1); Creatinine, Blood 0.83 mg/dL (0.40-1.00); Globulin, Blood 3.5 g/dL (2.2-4.0); Potassium, Blood 3.7 mmol/L (3.5-5.5)
[2024-04-06 20:33] VITALS: BP 142/89
== END 2024-04-06 20:35 | disposition home or self-care (01) ==
LOC: ER 17:14
PROVIDERS: Physician Assistant
DX: R55 Syncope and collapse (principal); E11.9 Type 2 diabetes mellitus without complications; G43.909 Migraine, unspecified, not intractable, without status migrainosus; I10 Essential (primary) hypertension; F17.210 Nicotine dependence, cigarettes, uncomplicated; Z79.899 Other long term (current) drug therapy; Z88.8 Allergy status to other drugs, medicaments and biological substances
CPT/HCPCS: 0241U; 71046; 80053; 83880; 84484; 85025; 85379; 93005; 93010; 99284-25

== ENCOUNTER 2024-05-05 19:21 | Emergency (ER) | payer OTHER ==
[~2024-05-05] VITALS: Ht 165.1 cm; Wt 85.3 kg
[~2024-05-05 19:21] MED LIST changes: +METO5A PO
[2024-05-05 19:26] VITALS: BP 144/107
[2024-05-05 19:43] LABS: Source, Urine Clean Catch
[2024-05-05] MEDS ORDERED: Metoclopramide HCl 10 MG Tab PO ONE (19:45)
[2024-05-05 19:47] LABS: Appearance, Urine Clear (Clear); Bilirubin, Urine Neg (Neg); Blood, Urine 4+ (Neg); Color, Urine Yellow (P-Yellow); Glucose Qualitative, Urine Neg (Neg); Ketones, Urine Neg (Neg); Leukocyte Esterase, Urine Neg (Neg); Nitrite, Urine Neg (Neg); Protein, Urine 2+ (Neg); Urobilinogen, Urine NORM (Normal)
[2024-05-05 19:57] LABS: Bacteria Few /hpf; Mucus Light (0-Heavy); Squamous Epithelial Cells Few /hpf (Few); White Blood Cells, Urine Not Seen /hpf (0-5)
[2024-05-05 20:23] LABS: BASOPHILS ABSOLUTE AUTO 0.05 K/mm3 (0.00-0.23); BASOPHILS PERCENT AUTO 1 % (0-2); EOSINOPHILS ABSOLUTE AUTO 0.23 K/mm3 (0.00-0.68); EOSINOPHILS PERCENT AUTO 3 % (0-6); Hematocrit 32.2 % (33.0-51.0); Hemoglobin 10.9 g/dL (11.5-16.0); IMMATURE GRAN ABSOLUTE AUTO 0.07 K/mm3 (0.00-0.10); IMMATURE GRAN PERCENT AUTO 1 % (0-1); LYMPHOCYTES ABSOLUTE AUTO 2.59 K/mm3 (0.84-5.20); LYMPHOCYTES PERCENT AUTO 29 % (21-46); MONOCYTES ABSOLUTE AUTO 0.54 K/mm3 (0.16-1.47); MONOCYTES PERCENT AUTO 6 % (4-13); Mean Corpuscular HGB 28.9 pg (26.0-34.0); Mean Corpuscular HGB Conc 33.9 g/dL (31.5-36.5); Mean Corpuscular Volume 85 fL (80-100); Mean Platelet Volume 10.2 fL (9.1-12.4); NEUTROPHILS ABSOLUTE AUTO 5.34 K/mm3 (1.96-9.15); NEUTROPHILS PERCENT AUTO 61 % (41-73); Platelet Count 288 K/mm3 (150-400); RDW Coefficient Variation 12.7 % (11.7-14.2); Red Blood Cell Count 3.77 M/mm3 (3.80-5.20); White Blood Cell Count 8.82 K/mm3 (4.00-11.30)
[2024-05-05 20:47] LABS: Albumin, Blood 3.6 g/dL (3.4-5.0); Albumin/Globulin Ratio 1.1 (0.8-1.8); Bilirubin, Total 0.2 mg/dL (0.1-1.0); Bun/Creatinine Ratio 10.2 (12.0-20.0); Calcium, Blood 8.9 mg/dL (8.5-10.1); Creatinine, Blood 0.78 mg/dL (0.40-1.00); Globulin, Blood 3.3 g/dL (2.2-4.0); Potassium, Blood 3.6 mmol/L (3.5-5.5); Total Protein, Blood 6.9 g/dL (6.4-8.2)
== END 2024-05-05 22:26 | disposition left against medical advice (07) ==
LOC: ER 19:21
PROVIDERS: Student in an Organized Health Care Education/Training Program
DX: N93.9 Abnormal uterine and vaginal bleeding, unspecified (principal); Z53.21 Procedure and treatment not carried out due to patient leaving prior to being seen by health care provider
CPT/HCPCS: 80053; 81001; 81025; 85025; 86850; 86900; 86901

== ENCOUNTER 2024-06-22 08:27 | Day surgery (SDC) | payer OTHER ==
[~2024-06-22] VITALS: Ht 165.1 cm; Wt 88.0 kg
[~2024-06-22 08:27] MED LIST changes: +Lactated Ringer's 1,000 ML IV ONE
[2024-06-22] MEDS ORDERED: LevonorgestreL 1 EACH IUD VAG ONE (08:50)
[2024-06-22] MEDS ORDERED: Lactated Ringer's 1,000 ML IV ONE (09:50)
[2024-06-22] MEDS ORDERED: LINZESS290 MCG PO (09:54)
[2024-06-22] MEDS ORDERED: FentaNYL Citrate 50 MCG/ML 2 ML Injection ONE ×2 (11:09→12:17)
[2024-06-22] MEDS ORDERED: propofoL 20 ML IV ONE (11:09)
[2024-06-22] MEDS ORDERED: Dexamethasone Sod Phos 10 MG/ML 1ML VIAL ONE (11:20)
[2024-06-22] MEDS ORDERED: Ondansetron HCl 2 MG / ML 2ML Vial ONE ×2 (11:34→12:17)
[2024-06-22] MEDS ORDERED: Silver Nitr/Potassium Nitrate 1 EA APPL ONE (11:42)
--- NOTE | 2024-06-22 11:49 | NUR ---
06/22/24 1149 Selena Ferro UD [id number] MGT LOT: [id number] EXP: 07/2028
[2024-06-22] MEDS ORDERED: Ketorolac Tromethamine 30mg Vial ONE (13:06)
[2024-06-22] MEDS ORDERED: Acetaminophen 500 MG Tab ONE (13:07)
[2024-06-22 13:29] VITALS: BP 143/91
--- NOTE | 2024-06-22 14:02 | NUR ---
06/22/24 1402 Maylin Wells PT RECEIVED IV FENTANYL PUSHED SLOWLY, AFTER RATING HER PAIN LEVEL A 10/10. PT RECEIVED PO MEDICATION TYLENOL AND TORADOL. 1340: PT STATED THAT HER PAIN LEVEL DROPPED DOWN TO A 6/10, WHICH WAS TOLERABLE FOR HER. PT STEADY GAIT, WAS ABLE TO WALK TO HER PRIVATE VEHICLE WITH ASSISTANCE FROM HER . PT COLLECTED ALL PERSONAL BELONGINGS. VSS.
[2024-06-28 13:14] LABS: HPV HIGH RISK BY TMA Not Detected; HPV SOURCE Not Provided
== END 2024-06-22 13:51 | disposition home or self-care (01) ==
LOC: ORSCSDS 08:27
PROVIDERS: Obstetrics & Gynecology
PROC: 0UDB8ZZ Extraction of Endometrium, Via Natural or Artificial Opening Endoscopic (ICD-10-PCS; principal; 2024-06-22 10:00)
PROC: 0UH98HZ Insertion of Contraceptive Device into Uterus, Via Natural or Artificial Opening Endoscopic (ICD-10-PCS; principal; 2024-06-22 10:00)
DX: N93.9 Abnormal uterine and vaginal bleeding, unspecified (principal); F17.210 Nicotine dependence, cigarettes, uncomplicated; E11.9 Type 2 diabetes mellitus without complications; I10 Essential (primary) hypertension; F43.10 Post-traumatic stress disorder, unspecified; F41.9 Anxiety disorder, unspecified; E66.9 Obesity, unspecified; Z68.32 Body mass index [BMI] 32.0-32.9, adult; Z79.899 Other long term (current) drug therapy
CPT/HCPCS: 82947; 87624; 88305; A9270; G0123; J1100; J1885; J2405; J2704; J3010; J7120; J7297

== ENCOUNTER 2024-08-30 13:20 | Day surgery (SDC) | payer OTHER ==
[~2024-08-30] VITALS: Ht 165.1 cm; Wt 91.5 kg
[2024-08-30] VITALS (19 sets, daily range): BP systolic 119–169; BP diastolic 66–103
[~2024-08-30 13:20] MED LIST changes: +Acetaminophen 500 MG Tab PO SCH; +CeFAZolin Sodium 2,000 MG in NS 100 ML IV SCH; +LINZESS290 MCG PO; -Lactated Ringer's 1,000 ML IV ONE; +Lactated Ringer's 1,000 ML IV SCH
[2024-08-30] MEDS ORDERED: HYDROmorphone HCl/Pf 1MG SYR ONE ×4 (13:28→17:14)
[2024-08-30] MEDS ORDERED: Rocuronium Bromide 10 MG/ML 5ML Injection IV ONE (13:28)
[2024-08-30] MEDS ORDERED: Ondansetron HCl 2 MG / ML 2ML Vial ONE (13:28)
[2024-08-30] MEDS ORDERED: Metoclopramide HCl 5MG / ML 2ML Vial ONE (13:28)
[2024-08-30] MEDS ORDERED: Sugammadex Sodium 200 MG/2ML SDV (100 MG/ML) ONE (13:28)
[2024-08-30] MEDS ORDERED: Dexamethasone Sod Phos 10 MG/ML 1ML VIAL ONE (13:28)
[2024-08-30] MEDS ORDERED: Ketorolac Tromethamine 30mg Vial ONE (13:28)
[2024-08-30] MEDS ORDERED: Bupivacaine 0.5% HCl 5 MG/ML 30MLVIAL ONE (13:57)
--- NOTE | 2024-08-30 14:20 | NUR ---
Ambulatory in Day Surgery. History, Chart, Medications and Allergies reviewed before start of procedure. Lungs clear T/O to Auscultation. Patient confirms NPO status and agrees with scheduled surgery. Pre-Op teaching done. Pt verbalizes understanding. Patient States Post-Procedure ride home has been arranged. PT BELONGINGS PLACED UNDERNEATH GURNEY FOR SAFEKEEPING. PT SUITCASE AND DENTURES TAKEN TO PACU FOR SAFEKEEPING. PT HAS 3 NOSE RINGS PLUS A LIP RING THAT CANNOT BE REMOVED. JEWELRY TAPED, JEWELRY WAIVER SIGNED, OR TEAM NOTIFIED.
[2024-08-30] MEDS ORDERED: propofoL 150 ML IV ONE (14:21)
[2024-08-30] MEDS ORDERED: FentaNYL Citrate 50 MCG/ML 2 ML Injection ONE ×3 (15:06→16:53)
[2024-08-30] MEDS ORDERED: Metoprolol Tartrate 5 ML IV ONE (15:07)
[2024-08-30] MEDS ORDERED: HydrALAZINE HCl 20 MG / ML 1ML Vial IV ONE (15:50)
[2024-08-30] MEDS ORDERED: Esmolol HCL 10 MG/ML 10ML VIAL ONE (16:07)
[2024-08-30] MEDS ORDERED: Simethicone 80 MG Chew PO PRN (16:55)
[2024-08-30] MEDS ORDERED: Metoclopramide HCl 10 MG Tab PO PRN (16:55)
[2024-08-30] MEDS ORDERED: OxyCODONE HCL 5 MG TAB PO PRN (16:55)
[2024-08-30] MEDS ORDERED: Ondansetron 4 MG TAB PO PRN (16:55)
[2024-08-30] MEDS ORDERED: Ondansetron HCl 2 MG / ML 2ML Vial IV PRN (16:55)
[2024-08-30] MEDS ORDERED: FLU VACC TS2024-25(6MOS UP)/PF 45 MCG/0.5 ML SYRINGE IM SCH (17:00)
[2024-08-30] MEDS ORDERED: Naloxone HCl 0.4MG / ML 1ML Vial IV PRN (17:00)
[2024-08-30] MEDS ORDERED: Ibuprofen 400 MG Tab PO PRN (17:00)
[2024-08-30] MEDS ORDERED: Metoclopramide HCl 5MG / ML 2ML Vial IV PRN (17:00)
[2024-08-30] MEDS ORDERED: DiphenhydrAMINE HCL 25 MG Cap PO PRN (17:05)
[2024-08-30] MEDS ORDERED: HydrOXYzine Pamoate 50 MG Cap PO PRN (17:05)
[2024-08-30] MEDS ORDERED: Acetaminophen 325 MG TABLET PO PRN (17:05)
[2024-08-30] MEDS ORDERED: Meclizine HCl 25 MG Tab PO PRN (17:05)
[2024-08-30] MEDS ORDERED: Melatonin 5 MG Tablet PO PRN (17:20)
[2024-08-30] MEDS ORDERED: Ketorolac Tromethamine 30mg Vial IV PRN (17:25)
[2024-08-30] MEDS ORDERED: Lactated Ringer's 1,000 ML IV SCH (17:25)
[2024-08-30] MEDS ORDERED: HYDROmorphone HCl/Pf 1MG SYR IV PRN (17:25)
--- NOTE | 2024-08-30 18:53 | NUR ---
NEW POST-OP @ 1800, LAP SITES X4 C/D/I PITA, WOUND GLUE. PATIENT UP VODIED 200, PVR 5ML. BRET PAD IN PLACE WITH SCANT DRNG. MEDICATED WITH PO PAIN PILLS. DENIES NAUSEA. PAIN IS 7/10 CRAMPING. HOPES TO GO HOME TONIGHT NO DC ORDER IN AT THIS TIME. VSS. AOX4. CALL LIGHT IN REACH
[2024-08-30] MEDS ORDERED: Venlafaxine HCl 75 MG CapCR PO SCH (21:00)
[2024-08-30] MEDS ORDERED: Gabapentin 300 MG Cap PO SCH (21:00)
[2024-08-30] MEDS ORDERED: QUEtiapine Fumarate 300 MG Tab PO SCH (21:00)
[2024-08-30] MEDS ORDERED: rOPINIRole HCl 0.25 MG Tab PO SCH (21:00)
--- NOTE | 2024-08-30 22:36 | NUR ---
DISCHARGE PT D/C HOME AT THIS TIME WITH SPOUSE VIA WC TO PRIVATE AUTO. D/C INSTRUCTIONS AND PERSONAL BELONGINGS PROVIDED PRIOR TO DC. PT AND SPOUSE VERBALIZE UNDERSTANDING AND DENIES CONCERNS. IS VOIDING AND BALAJI PO INTAKE. DENIES N/V. IV REMOVED. PAIN MANAGED PER EMAR. IND IN ROOM. RN TO WALK PT AND SPOUSE OFF UNIT AT THIS TIME.
[2024-08-31] MEDS ORDERED: Misc. Capsule PO SCH (09:00)
[2024-08-31] MEDS ORDERED: Losartan Potassium 50 MG Tab PO SCH (09:00)
== END 2024-08-30 22:40 | disposition home or self-care (01) ==
LOC: ORSCMMR 13:20 → ORD 14:30 → SURS 18:11 → ORSCMMR 18:11 → SURS 22:40 → ORD 09-03 13:00
PROVIDERS: Obstetrics & Gynecology
PROC: 0UT94ZZ Resection of Uterus, Percutaneous Endoscopic Approach (ICD-10-PCS; principal; 2024-08-30 14:30)
PROC: 0UB74ZZ Excision of Bilateral Fallopian Tubes, Percutaneous Endoscopic Approach (ICD-10-PCS; principal; 2024-08-30 14:30)
DX: N93.9 Abnormal uterine and vaginal bleeding, unspecified (principal); N80.03 Adenomyosis of the uterus; E11.9 Type 2 diabetes mellitus without complications; I10 Essential (primary) hypertension; E66.9 Obesity, unspecified; Z68.33 Body mass index [BMI] 33.0-33.9, adult; Z79.85 Long-term (current) use of injectable non-insulin antidiabetic drugs; Z79.899 Other long term (current) drug therapy; F17.210 Nicotine dependence, cigarettes, uncomplicated
CPT/HCPCS: 82947; 86850; 86900; 86901; 88307; A9270; J0360; J0690; J1100; J1171; J1885; J2405; J2704; J2765; J3010; J7120

== ENCOUNTER → 2024-10-02 | Outpatient (CLI) | payer OTHER ==
[~2024-10-02] MED LIST changes: -Acetaminophen 500 MG Tab PO SCH; -CeFAZolin Sodium 2,000 MG in NS 100 ML IV SCH; -Lactated Ringer's 1,000 ML IV SCH
== END | disposition home or self-care (01) ==
LOC: LAB 09:45 → LAB SHORT 09:45
DX: R35.0 Frequency of micturition (principal)
CPT/HCPCS: 87086

== ENCOUNTER → 2025-05-08 | Outpatient (CLI) | payer OTHER ==
[2025-05-08 16:21] LABS: Hematocrit 44.7 % (33.0-51.0); Hemoglobin 14.9 g/dL (11.5-16.0); Mean Corpuscular HGB Conc 33.3 g/dL (31.5-36.5); Mean Corpuscular Volume 90 fL (80-100); NRBC ABSOLUTE 0.00 K/mm3 (0.00-0.02); NRBC Auto 0.0 /100 WBC (0.0-0.2); Platelet Count 320 K/mm3 (150-400); RDW Coefficient Variation 11.8 % (11.7-14.2); RDW Standard Deviation 38.3 fL (35.1-46.3)
[2025-05-08 16:47] LABS: BASOPHILS ABSOLUTE MAN 0.08 K/mm3 (0.00-0.23); BASOPHILS PERCENT MAN 1 % (0-2); EOSINOPHILS ABSOLUTE MAN 0.16 K/mm3 (0.00-0.68); EOSINOPHILS PERCENT MAN 2 % (0-6); LYMPHOCYTES ABSOLUTE MAN 2.41 K/mm3 (0.84-5.20); LYMPHOCYTES PERCENT MAN 30 % (21-46); MONOCYTES ABSOLUTE MAN 0.16 K/mm3 (0.16-1.47); MONOCYTES PERCENT MAN 2 % (4-13); NEUTROPHILS ABSOLUTE MAN 5.22 K/mm3 (1.96-9.15); SEG NEUTROPHILS PERCENT MAN 65 % (41-73)
[2025-05-08 20:44] LABS: Alanine Aminotransfer (ALT/SGP 25.0 U/L (12-78); Albumin, Blood 4.1 g/dL (3.4-5.0); Albumin/Globulin Ratio 1.2 (0.8-1.8); Anion Gap 9.0 mmol/L (3-11); Aspartate Aminotrans (AST/SGOT 13.0 U/L (12-37); Bilirubin, Total 0.3 mg/dL (0.1-1.0); Blood Urea Nitrogen 7.0 mg/dL (8-24); CO2, Blood 27.0 mmol/L (21-32); Calcium, Blood 8.8 mg/dL (8.5-10.1); Chloride, Blood 102.0 mmol/L (98-108); Creatinine, Blood 0.71 mg/dL (0.40-1.00); Globulin, Blood 3.4 g/dL (2.2-4.0); Glucose, Blood 100.0 mg/dL (70-99); Potassium, Blood 4.0 mmol/L (3.5-5.5); Sodium, Blood 134.0 mmol/L (136-145); Total Protein, Blood 7.5 g/dL (6.4-8.2)
== END | disposition home or self-care (01) ==
LOC: LAB SHORT 14:40
PROVIDERS: Nurse Practitioner
DX: M77.12 Lateral epicondylitis, left elbow (principal); M77.02 Medial epicondylitis, left elbow; R10.11 Right upper quadrant pain; R35.0 Frequency of micturition; R11.0 Nausea; Z87.19 Personal history of other diseases of the digestive system
CPT/HCPCS: 80053; 83690; 85007; 85027

== ENCOUNTER 2025-05-18 07:30 | Emergency (ER) | payer OTHER ==
[~2025-05-18] VITALS: Ht 165.1 cm; Wt 87.5 kg
[2025-05-18] MEDS ORDERED: ZANAFLEX413 PO (07:45)
[2025-05-18] MEDS ORDERED: LAMOTRIGINE25 M4 PO (07:46)
[2025-05-18] MEDS ORDERED: QUETIAPINE FUM400 M3 (07:48)
[2025-05-18] MEDS ORDERED: PRAZ2 PO (07:49)
[2025-05-18] MEDS ORDERED: HYDPAM50 (07:53)
[2025-05-18] MEDS ORDERED: Methocarbamol500 MG PO (07:54)
[2025-05-18] MEDS ORDERED: Methyl Salicylate/Menth/Camph 57 GM TUBE TOP ONE (08:05)
[2025-05-18] MEDS ORDERED: Ketorolac Tromethamine 30mg Vial IV ONE (08:05)
[2025-05-18 08:18] LABS: BASOPHILS ABSOLUTE AUTO 0.04 K/mm3 (0.00-0.23); BASOPHILS PERCENT AUTO 1 % (0-2); EOSINOPHILS ABSOLUTE AUTO 0.12 K/mm3 (0.00-0.68); EOSINOPHILS PERCENT AUTO 2 % (0-6); Hematocrit 39.7 % (33.0-51.0); Hemoglobin 13.4 g/dL (11.5-16.0); IMMATURE GRAN ABSOLUTE AUTO 0.03 K/mm3 (0.00-0.10); IMMATURE GRAN PERCENT AUTO 1 % (0-1); LYMPHOCYTES ABSOLUTE AUTO 1.94 K/mm3 (0.84-5.20); LYMPHOCYTES PERCENT AUTO 35 % (21-46); MONOCYTES ABSOLUTE AUTO 0.37 K/mm3 (0.16-1.47); MONOCYTES PERCENT AUTO 7 % (4-13); Mean Corpuscular HGB Conc 33.8 g/dL (31.5-36.5); Mean Corpuscular Volume 88 fL (80-100); NEUTROPHILS ABSOLUTE AUTO 3.00 K/mm3 (1.96-9.15); NEUTROPHILS PERCENT AUTO 55 % (41-73); NRBC ABSOLUTE 0.00 K/mm3 (0.00-0.02); NRBC Auto 0.0 /100 WBC (0.0-0.2); Platelet Count 267 K/mm3 (150-400); RDW Coefficient Variation 11.9 % (11.7-14.2); RDW Standard Deviation 38.8 fL (35.1-46.3)
[2025-05-18 08:39] LABS: Alanine Aminotransfer (ALT/SGP 21 U/L (12-78); Albumin, Blood 4.1 g/dL (3.4-5.0); Albumin/Globulin Ratio 1.2 (0.8-1.8); Anion Gap 10 mmol/L (3-11); Aspartate Aminotrans (AST/SGOT 14 U/L (12-37); Bilirubin, Total 0.2 mg/dL (0.1-1.0); Blood Urea Nitrogen 10 mg/dL (8-24); C-REACTIVE PROTEIN, EXT RANGE <0.290 mg/dL (0.000-0.300); CO2, Blood 23 mmol/L (21-32); Calcium, Blood 9.0 mg/dL (8.5-10.1); Chloride, Blood 106 mmol/L (98-108); Creatinine, Blood 0.72 mg/dL (0.40-1.00); Globulin, Blood 3.5 g/dL (2.2-4.0); Glucose, Blood 118 mg/dL (70-99); Potassium, Blood 3.7 mmol/L (3.5-5.5); Sodium, Blood 135 mmol/L (136-145); Total Protein, Blood 7.6 g/dL (6.4-8.2)
[2025-05-18] MEDS ORDERED: FAMO20 PO (09:58)
[2025-05-18] MEDS ORDERED: CYCL10 PO (09:58)
[2025-05-18 10:09] VITALS: BP 125/88
== END 2025-05-18 10:29 | disposition home or self-care (01) ==
LOC: ER 07:30
PROVIDERS: Student in an Organized Health Care Education/Training Program
DX: M62.830 Muscle spasm of back (principal); M79.602 Pain in left arm; F17.210 Nicotine dependence, cigarettes, uncomplicated; E11.9 Type 2 diabetes mellitus without complications; I10 Essential (primary) hypertension; G43.909 Migraine, unspecified, not intractable, without status migrainosus; Z79.899 Other long term (current) drug therapy; Z88.8 Allergy status to other drugs, medicaments and biological substances
CPT/HCPCS: 73030; 73070; 73110; 80053; 82550; 85025; 85651; 86140; 93971; 96374; 99284-25; A9270; J1885